=== PATIENT | female | born 1985 | race American Indian/Alaskan Native ===

== ENCOUNTER 2016-12-18 01:56 | Emergency (ER) | payer MEDICAID, OTHER ==
[2016-12-18 02:05] VITALS: TEMP 98.3
--- NOTE | 2016-12-18 02:24 | ED PDOC ---
Arrival/HPI - General Chief Complaint: Respiratory Distress Time Seen by Provider: 12/18/16 02:13 Historian: Patient - History of Present Illness Narrative History of Present Illness (Text): 12/18/16 02:20 Johnson Ballard is a 31 year old female, with a history of asthma, presents to the emergency department via ambulance complaining of difficulty breathing since earlier today. Patient did not use any breathing treatment at home. Patient was given breathing treatments by EMS for appreciable relief. States she had an appointment with ENT yesterday, but was not evaluated due to insurance issues. Denies fever, chills, headache, dizziness, chest pain, nausea , vomiting, diarrhea, urinary symptoms, or any other complaints. Time/Duration: 4-6 hours Symptom Onset: Gradual Symptom Course: Unchanged Severity Level: Mild Activities at Onset: Light Past Medical History - Provider Review Nursing Documentation Reviewed: Yes - Infectious Disease Hx of Infectious Diseases: None - Tetanus Immunization Tetanus Immunization: Unknown - Cardiac Hx Cardiac Disorders: No - Pulmonary Hx Asthma: Yes Hx Bronchitis: No Hx Chronic Obstructive Pulmonary Disease (COPD): No Hx Emphysema: No Hx Pneumonia: No Hx Sleep Apnea: No - Neurological Hx Neurological Disorder: No - HEENT Hx HEENT Disorder: No - Renal Hx Renal Disorder: No - Endocrine/Metabolic Hx Endocrine Disorders: No - Hematological/Oncological Hx Blood Disorders: No - Integumentary Hx Dermatological Disorder: No - Musculoskeletal/Rheumatological Hx Musculoskeletal Disorders: No Hx Falls: No - Gastrointestinal Hx Gastrointestinal Disorders: No - Genitourinary/Gynecological Hx Genitourinary Disorders: No Hx Reproductive Disorders: No - Psychiatric Hx Anxiety: No Hx Bipolar Disorder: No Hx Depression: No Hx Schizophrenia: No Hx Substance Use: No - Past Surgical History Past Surgical History: No Previous - Anesthesia Hx Anesthesia: No - Suicidal Assessment Feels Threatened In Home Enviroment: No Family/Social History - Physician Review Nursing Documentation Reviewed: Yes Family/Social History: No Known Family HX Smoking Status: Former Smoker Hx Alcohol Use: No Hx Substance Use: No Substance used: pcp, marijuana, nathen, ecstasy Hx Substance Use Treatment: No Allergies/Home Meds Allergies/Adverse Reactions: Allergies Beef Containing Products Adverse Reaction (Verified 12/18/16 02:11) SHORTNESS OF BREATH beet Adverse Reaction (Verified 12/18/16 02:11) RASH chocolate flavor Adverse Reaction (Verified 12/18/16 02:11) RASH ORANGE Adverse Reaction (Verified 12/18/16 02:11) SHORTNESS OF BREATH PORK Adverse Reaction (Verified 12/18/16 02:11) SWELLING scallops Adverse Reaction (Verified 12/18/16 02:11) SHORTNESS OF BREATH tomato Adverse Reaction (Verified 12/18/16 02:11) RASH Review of Systems - Physician Review All systems were reviewed & negative as marked: Yes - Review of Systems Constitutional: Normal. absent: Fatigue, Fevers ENT: Other Respiratory: SOB. absent: Cough, Sputum Cardiovascular: absent: Chest Pain Gastrointestinal: Normal. absent: Abdominal Pain, Nausea, Vomiting, Appetite Changes Neurological: Normal. absent: Headache, Dizziness Psychiatric: Normal Physical Exam Vital Signs Reviewed: Yes Vital Signs Temp Pulse Resp BP Pulse Ox 12/18/16 05:05 97 H 18 118/61 95 12/18/16 03:40 88 20 122/65 100 12/18/16 02:40 87 20 117/72 100 12/18/16 02:38 20 93 L 12/18/16 02:04 98.3 F 73 20 118/57 L 100 Temperature: Afebrile Blood Pressure: Normal Pulse: Regular Respiratory Rate: Normal Appearance: Positive for: Well-Appearing, Non-Toxic, Comfortable Pain Distress: None Mental Status: Positive for: Alert and Oriented X 3 - Systems Exam Head: Present: Atraumatic, Normocephalic Pupils: Present: PERRL Extroacular Muscles: Present: EOMI Conjunctiva: Present: Normal Mouth: Present: Moist Mucous Membranes Pharnyx: Present: Normal. No: ERYTHEMA, EXUDATE, TONSILS ENLARGED Respiratory/Chest: Present: Clear to Auscultation, Good Air Exchange. No: Respiratory Distress, Accessory Muscle Use Cardiovascular: Present: Regular Rate and Rhythm, Normal S1, S2. No: Murmurs Abdomen: Present: Normal Bowel Sounds. No: Tenderness, Distention, Peritoneal Signs Upper Extremity: Present: Normal Inspection. No: Cyanosis, Edema Lower Extremity: Present: Normal Inspection. No: Edema Neurological: Present: GCS=15, CN II-XII Intact, Speech Normal, Motor Func Grossly Intact, Normal Sensory Function Skin: Present: Warm, Dry, Normal Color. No: Rashes Psychiatric: Present: Alert, Oriented x 3, Normal Insight, Normal Concentration Medical Decision Making ED Course and Treatment: 12/18/16 02:28 Impression: A 31 year old female who presents to the emergency department complaining of difficulty breathing for past few hours. Plan: -- Duoneb -- Phenergan Codeine -- Reassess and disposition Progress Notes: 12/18/16 04:45 States breathing improved markedly post treatment. Patient is stable for discharge. advised to f.u with PMD within few days and present to emergency department for new or worsening concerns. Re-evaluation Time: 04:45 Reassessment Condition: Re-examined, Improved - Medication Orders Current Medication Orders: Discontinued Medications Albuterol/Ipratropium (Duoneb 3 Mg/0.5 Mg (3 Ml) Ud) 3 ml IH Q15M KELSY Stop: 12/18/16 03:16 Last Admin: 12/18/16 03:28 Dose: 3 ml Promethazine HCl/Codeine (Phenergan/Codeine Oral Syrup) 5 ml PO ONCE STA Stop: 12/18/16 03:52 Last Admin: 12/18/16 04:07 Dose: 5 ml - Scribe Statement The provider has reviewed the documentation as recorded by the Lydia Gar Provider Attestation: All medical record entries made by the Lydia were at my direction and personally dictated by me. I have reviewed the chart and agree that the record accurately reflects my personal performance of the history, physical exam, medical decision making, and the department course for this patient. I have also personally directed, reviewed, and agree with the discharge instructions and disposition. Disposition/Present on Arrival - Present on Arrival Any Indicators Present on Arrival: No History of DVT/PE: No History of Uncontrolled Diabetes: No Urinary Catheter: No History of Decub. Ulcer: No History Surgical Site Infection Following: None - Disposition Have Diagnosis and Disposition been Completed?: Yes Diagnosis: Asthma Disposition: HOME/ ROUTINE Disposition Time: 04:46 Condition: GOOD Discharge Instructions (ExitCare): Asthma (DC) Prescriptions: Albuterol 0.083% [Albuterol Sulfate 3 Ml] 3 ml IH PRN PRN #24 PRN Reason: Shortness Of Breath predniSONE [predniSONE Tab] 20 mg PO TID #15 tab Albuterol HFA [Ventolin HFA] 1 puff IH QID #1 puff
[2016-12-18 02:38] VITALS: BMI 28.2
[2016-12-18] MEDS: Albuterol-Ipratrop 3 mg / 0.5 (3 ml) UD IH SCH ×3 (02:54→03:28)
[2016-12-18] MEDS ORDERED: Promethazine/Cod 6.25mg-10mg/5ml Syr UD PO STA (03:51)
[2016-12-18 05:06] VITALS: BP 118/61; PULSE 97; RESP 18; O2SAT 95
== END 2016-12-18 05:06 | disposition home or self-care (01) ==
LOC: ED 01:56
DX: J45.909 Unspecified asthma, uncomplicated (principal); Z87.891 Personal history of nicotine dependence

== ENCOUNTER 2016-12-20 04:49 | Emergency (ER) | payer MEDICAID ==
[2016-12-20 04:49] VITALS: BMI 28.2
--- NOTE | 2016-12-20 05:06 | ED PDOC ---
Arrival/HPI - General Chief Complaint: Shortness Of Breath Time Seen by Provider: 12/20/16 04:51 Historian: Patient - History of Present Illness Narrative History of Present Illness (Text): 12/20/16 05:05 Romy Ballard is a 31 year old female, whose past medical history includes asthma , who presents to the Emergency department brought in by EMS for shortness of breath and sore throat tonight. Patient states symptoms are consistent with previous episodes of asthma. Patient reports she feels better after she received nebulizer treatments in the field. Patient denies any fever, chills, chest pain,nausea, vomiting, diarrhea, headache, dizziness, or any other complaints. Time/Duration: Other (tonight) Symptom Onset: Gradual Symptom Course: Unchanged Activities at Onset: Rest, Light Context: Home Past Medical History - Provider Review Nursing Documentation Reviewed: Yes - Infectious Disease Hx of Infectious Diseases: None - Tetanus Immunization Tetanus Immunization: Unknown - Cardiac Hx Cardiac Disorders: No - Pulmonary Hx Asthma: Yes Hx Bronchitis: No Hx Chronic Obstructive Pulmonary Disease (COPD): No Hx Emphysema: No Hx Pneumonia: No Hx Sleep Apnea: No - Neurological Hx Neurological Disorder: No - HEENT Hx HEENT Disorder: No - Renal Hx Renal Disorder: No - Endocrine/Metabolic Hx Endocrine Disorders: No - Hematological/Oncological Hx Blood Disorders: No - Integumentary Hx Dermatological Disorder: No - Musculoskeletal/Rheumatological Hx Musculoskeletal Disorders: No Hx Falls: No - Gastrointestinal Hx Gastrointestinal Disorders: No - Genitourinary/Gynecological Hx Genitourinary Disorders: No Hx Reproductive Disorders: No - Psychiatric Hx Anxiety: No Hx Bipolar Disorder: No Hx Depression: No Hx Schizophrenia: No Hx Substance Use: No - Past Surgical History Past Surgical History: No Previous - Anesthesia Hx Anesthesia: No - Suicidal Assessment Feels Threatened In Home Enviroment: No Family/Social History - Physician Review Nursing Documentation Reviewed: Yes Family/Social History: No Known Family HX Smoking Status: Former Smoker Hx Alcohol Use: No Hx Substance Use: No Substance used: pcp, marijuana, nathen, ecstasy Hx Substance Use Treatment: No Allergies/Home Meds Allergies/Adverse Reactions: Allergies Beef Containing Products Adverse Reaction (Verified 12/18/16 02:11) SHORTNESS OF BREATH beet Adverse Reaction (Verified 12/20/16 04:55) RASH chocolate flavor Adverse Reaction (Verified 12/20/16 04:55) RASH ORANGE Adverse Reaction (Verified 12/20/16 04:55) SHORTNESS OF BREATH PORK Adverse Reaction (Verified 12/20/16 04:55) SWELLING scallops Adverse Reaction (Verified 12/20/16 04:55) SHORTNESS OF BREATH tomato Adverse Reaction (Verified 12/20/16 04:55) RASH Review of Systems - Physician Review All systems were reviewed & negative as marked: Yes - Review of Systems Constitutional: Normal. absent: Fevers Eyes: Normal ENT: Sore Throat Respiratory: SOB Cardiovascular: Normal. absent: Chest Pain Gastrointestinal: Normal. absent: Abdominal Pain, Diarrhea, Nausea Genitourinary Female: Normal. absent: Dysuria, Frequency, Hematuria, Urine Output Changes Musculoskeletal: Normal. absent: Back Pain, Neck Pain Skin: Normal. absent: Rash Neurological: Normal. absent: Headache, Dizziness Endocrine: Normal Hemo/Lymphatic: Normal Psychiatric: Normal Physical Exam Vital Signs Reviewed: Yes Vital Signs Pulse Resp BP Pulse Ox 12/20/16 06:26 89 18 131/64 96 12/20/16 05:05 18 94 L 12/20/16 04:57 100 H 20 134/64 96 Temperature: Afebrile Blood Pressure: Normal Pulse: Regular Respiratory Rate: Normal Appearance: Positive for: Well-Appearing, Non-Toxic, Comfortable Pain Distress: None Mental Status: Positive for: Alert and Oriented X 3 - Systems Exam Head: Present: Atraumatic, Normocephalic Pupils: Present: PERRL Extroacular Muscles: Present: EOMI Conjunctiva: Present: Normal Ears: Present: Normal, NORMAL TM, Normal Canal Mouth: Present: Moist Mucous Membranes Pharnyx: Present: ERYTHEMA. No: EXUDATE, TONSILS ENLARGED, Peritonsilar Swelling, Uvular Deviation, Muffled/Hoarse Voice, Strider, Soft Palate/Uvular Edema Nose (External): Present: Atraumatic Nose (Internal): Present: Normal Inspection Neck: Present: Normal Range of Motion Respiratory/Chest: Present: Wheezes. No: Respiratory Distress, Accessory Muscle Use Cardiovascular: Present: Regular Rate and Rhythm, Normal S1, S2. No: Murmurs Abdomen: Present: Normal Bowel Sounds. No: Tenderness, Distention, Peritoneal Signs Upper Extremity: Present: Normal Inspection. No: Cyanosis, Edema Lower Extremity: Present: Normal Inspection. No: Edema Neurological: Present: GCS=15, CN II-XII Intact, Speech Normal Skin: Present: Warm, Dry, Normal Color. No: Rashes Psychiatric: Present: Alert, Oriented x 3, Normal Insight, Normal Concentration Medical Decision Making ED Course and Treatment: 12/20/16 05:05 Impression: 31 year old female complaining of shortness of breath and sore throat. Differential Diagnosis include but are not limited to: asthma vs. pharyngitis Plan: -- Duoneb -- Solu-medrol -- Reassess and disposition Prior Visits: Notes and results from previous visits were reviewed. On 12/18/2016, pt was seen in the Emergency department for shortness of breath. Pt was d/c home with Albuterol, Ventolin, and Prednisone. Progress Notes: 12/20/16 06:05 On re-evaluation, the patient feels better and is in no acute distress. Wheezing resolved. Patient is stable for discharge. Patient was instructed to follow up with physician/clinic in 1-2 days or return if symptoms worsen or new concerning symptoms arise. - EKG Interpretation EKG Interpretation (Text): 12/20/16 06:58 EKG- NSR@ 77,no acute changes Interpreted by ED Physician: Yes Type: 12 lead EKG - Medication Orders Current Medication Orders: Discontinued Medications Albuterol/Ipratropium (Duoneb 3 Mg/0.5 Mg (3 Ml) Ud) 3 ml IH ONCE STA Stop: 12/20/16 05:09 Last Admin: 12/20/16 05:19 Dose: 3 ml Amoxicillin (Amoxil 500 Mg Cap) 500 mg PO STAT STA PRN Reason: Protocol Stop: 12/20/16 06:01 Last Admin: 12/20/16 06:10 Dose: 500 mg Methylprednisolone (Solu-Medrol) 125 mg IVP ONCE ONE Stop: 12/20/16 05:09 Last Admin: 12/20/16 05:19 Dose: 125 mg - Gonzaloibe Statement The provider has reviewed the documentation as recorded by the Lydia Cabrera All medical record entries made by the Lydia were at my direction and personally dictated by me. I have reviewed the chart and agree that the record accurately reflects my personal performance of the history, physical exam, medical decision making, and the department course for this patient. I have also personally directed, reviewed, and agree with the discharge instructions and disposition. Disposition/Present on Arrival - Present on Arrival Any Indicators Present on Arrival: No History of DVT/PE: No History of Uncontrolled Diabetes: No Urinary Catheter: No History of Decub. Ulcer: No History Surgical Site Infection Following: None - Disposition Have Diagnosis and Disposition been Completed?: Yes Diagnosis: Asthma exacerbation, Pharyngitis Disposition: HOME/ ROUTINE Disposition Time: 06:01 Isolation: Special Contact Patient Plan: Discharge Condition: GOOD Discharge Instructions (ExitCare): Asthma (ED), Pharyngitis (ED) Additional Instructions: Take meds as prescribed/follow up with your doctor this week/any recurrent worsening symptoms return to the emergency room Prescriptions: Albuterol 0.083% [Albuterol 0.083% Inhal Amber (2.5 mg/3 ml) UD] 3 ml IH Q4 PRN # 1 pkg PRN Reason: Wheezing Amoxicillin [Amoxil 500 mg Cap] 500 mg PO TID #21 cap predniSONE [Prednisone] 40 mg PO DAILY #10 tab Albuterol Sulfate [Proair Hfa] 2 puff IH Q4 PRN #1 inh PRN Reason: Wheezing Forms: WORK NOTE
[2016-12-20 05:07] VITALS: RESP 18
[2016-12-20] MEDS ORDERED: Albuterol-Ipratrop 3 mg / 0.5 (3 ml) UD IH STA (05:08)
[2016-12-20 06:27] VITALS: BP 131/64; PULSE 89; O2SAT 96
--- NOTE | 2016-12-20 12:12 | CARD ---
APPROVED REPORT EKG Measurement Heart [id number] <Conclusion> Normal sinus rhythm Normal ECG
== END 2016-12-20 07:05 | disposition home or self-care (01) ==
LOC: ED 04:49
DX: J45.901 Unspecified asthma with (acute) exacerbation (principal); J02.9 Acute pharyngitis, unspecified; Z87.891 Personal history of nicotine dependence
CPT/HCPCS: 93005; 96374; 99285; J2930

== ENCOUNTER 2017-04-04 05:06 | Emergency (ER) | payer MEDICAID, OTHER ==
[2017-04-04 05:08] VITALS: BMI 25.2
[2017-04-04 05:14] VITALS: RESP 18
--- NOTE | 2017-04-04 05:21 | ED PDOC ---
Arrival/HPI - General Chief Complaint: Shortness Of Breath Time Seen by Provider: 04/04/17 05:14 Historian: Patient - History of Present Illness Narrative History of Present Illness (Text): 04/04/17 05:18 Romy Ballard is a 31 year old female, whose past medical history includes asthma, who presents to the Emergency department brought in by EMS for shortness of breath tonight. Patient states symptoms are consistent with previous episodes of asthma. Patient given Duoneb and Solu-medrol 125 mg by EMS. Patient reports she feels slightly better after she received nebulizer treatments in the field. Patient denies any fever, chills, chest pain,nausea, vomiting, diarrhea, headache, dizziness, or any other complaints. Symptom Onset: Gradual Symptom Course: Unchanged Activities at Onset: Rest, Light Context: Home Past Medical History - Provider Review Nursing Documentation Reviewed: Yes - Infectious Disease Hx of Infectious Diseases: None - Tetanus Immunization Tetanus Immunization: Unknown - Cardiac Hx Cardiac Disorders: No - Pulmonary Hx Asthma: Yes Hx Bronchitis: No Hx Chronic Obstructive Pulmonary Disease (COPD): No Hx Emphysema: No Hx Pneumonia: No Hx Sleep Apnea: No - Neurological Hx Neurological Disorder: No - HEENT Hx HEENT Disorder: No - Renal Hx Renal Disorder: No - Endocrine/Metabolic Hx Endocrine Disorders: No - Hematological/Oncological Hx Blood Disorders: No - Integumentary Hx Dermatological Disorder: No - Musculoskeletal/Rheumatological Hx Musculoskeletal Disorders: No Hx Falls: No - Gastrointestinal Hx Gastrointestinal Disorders: No - Genitourinary/Gynecological Hx Genitourinary Disorders: No Hx Reproductive Disorders: No - Psychiatric Hx Anxiety: No Hx Bipolar Disorder: No Hx Depression: No Hx Schizophrenia: No Hx Substance Use: No (2 days ago) - Past Surgical History Past Surgical History: No Previous - Anesthesia Hx Anesthesia: No - Suicidal Assessment Feels Threatened In Home Enviroment: No Family/Social History - Physician Review Nursing Documentation Reviewed: Yes Family/Social History: Unknown Family HX Smoking Status: Light Smoker < 10 Cigarettes Daily Hx Alcohol Use: No Hx Substance Use: No (2 days ago) Substance used: pcp, marijuana, nathen, ecstasy Hx Substance Use Treatment: No Allergies/Home Meds Allergies/Adverse Reactions: Allergies Beef Containing Products Allergy (Verified 04/07/17 03:11) SHORTNESS OF BREATH beet Adverse Reaction (Verified 04/07/17 03:11) RASH chocolate flavor Adverse Reaction (Verified 04/07/17 03:11) RASH ORANGE Adverse Reaction (Verified 04/07/17 03:11) SHORTNESS OF BREATH PORK Adverse Reaction (Verified 04/07/17 03:11) SWELLING scallops Adverse Reaction (Verified 04/07/17 03:11) SHORTNESS OF BREATH tomato Adverse Reaction (Verified 04/07/17 03:11) RASH Review of Systems - Physician Review All systems were reviewed & negative as marked: Yes - Review of Systems Constitutional: Normal. absent: Fevers Eyes: Normal ENT: Normal Respiratory: SOB Cardiovascular: Normal. absent: Chest Pain Gastrointestinal: Normal. absent: Abdominal Pain, Diarrhea, Nausea, Vomiting Genitourinary Female: Normal. absent: Dysuria, Frequency, Hematuria, Urine Output Changes Musculoskeletal: Normal. absent: Back Pain, Neck Pain Skin: Normal. absent: Rash Neurological: Normal. absent: Headache, Dizziness Endocrine: Normal Hemo/Lymphatic: Normal Psychiatric: Normal Physical Exam Vital Signs Reviewed: Yes Vital Signs Pulse Resp BP Pulse Ox 04/04/17 06:54 89 18 125/69 94 L 04/04/17 05:09 82 18 129/72 100 Temperature: Afebrile Blood Pressure: Normal Pulse: Regular Respiratory Rate: Normal Appearance: Positive for: Well-Appearing, Non-Toxic, Comfortable Pain Distress: None Mental Status: Positive for: Alert and Oriented X 3 - Systems Exam Head: Present: Atraumatic, Normocephalic Pupils: Present: PERRL Extroacular Muscles: Present: EOMI Conjunctiva: Present: Normal Mouth: Present: Moist Mucous Membranes Neck: Present: Normal Range of Motion Respiratory/Chest: Present: Wheezes. No: Respiratory Distress, Accessory Muscle Use Cardiovascular: Present: Regular Rate and Rhythm, Normal S1, S2. No: Murmurs Abdomen: Present: Normal Bowel Sounds. No: Tenderness, Distention, Peritoneal Signs Back: Present: Normal Inspection Upper Extremity: Present: Normal Inspection. No: Cyanosis, Edema Lower Extremity: Present: Normal Inspection. No: Edema Neurological: Present: GCS=15, CN II-XII Intact, Speech Normal Skin: Present: Warm, Dry, Normal Color. No: Rashes Psychiatric: Present: Alert, Oriented x 3, Normal Insight, Normal Concentration Medical Decision Making ED Course and Treatment: 04/04/17 05:18 Impression: 31 year old female complaining of shortness of breath tonight. Differential Diagnosis included but are not limited to: asthma Plan: -- EKG -- Labs -- Duoneb -- Reassess and disposition Prior Visits: Notes and results from previous visits were reviewed. On 12/20/2016, pt was seen in the Emergency department for shortness of breath and sore throat. Pt was d/c home. Progress Notes: 04/04/17 05:3 Rebiewed radiology, EKG shows NSR at [address]-segment elevations or depressions, no T-wave inversions, normal intervals. - Lab Interpretations Lab Results: 04/04/17 05:50 04/04/17 06:15 Lab Results 04/04/17 06:15: Sodium 141, Potassium 4.6, Chloride 106, Carbon Dioxide 26, Anion Gap 14, BUN 14, Creatinine 0.6, Est GFR ( Amer) > 60, Est GFR (Non- Af Amer) > 60, Random Glucose 100, Calcium 9.2, Total Bilirubin 0.6, AST 48 H, ALT 32, Alkaline Phosphatase 54, Total Protein 7.7, Albumin 4.5, Globulin 3.2, Albumin/Globulin Ratio 1.4 04/04/17 05:50: WBC 7.1, RBC 5.03, Hgb 11.3 L, Hct 35.2 L, MCV 70.0 L, MCH 22.5 L, MCHC 32.1, RDW 18.2 H, Plt Count 323, Gran % 54.9, Lymph % (Auto) 30.9, [place] % (Auto) 8.4 H, Eos % (Auto) 5.5 H, Baso % (Auto) 0.3, Gran # 3.88, Lymph # 2.2 , [place] # 0.6, Eos # 0.4, Baso # 0.02 - EKG Interpretation Interpreted by ED Physician: Yes Type: 12 lead EKG - Medication Orders Current Medication Orders: Discontinued Medications Albuterol/Ipratropium (Duoneb 3 Mg/0.5 Mg (3 Ml) Ud) 3 ml IH Q15M KELSY Stop: 04/04/17 06:01 Last Admin: 04/04/17 06:33 Dose: 3 ml - Scribe Statement The provider has reviewed the documentation as recorded by the Lydia Cabrera Provider Scribe Attestation: All medical record entries made by the Scribe were at my direction and personally dictated by me. I have reviewed the chart and agree that the record accurately reflects my personal performance of the history, physical exam, medical decision making, and the department course for this patient. I have also personally directed, reviewed, and agree with the discharge instructions and disposition. Disposition/Present on Arrival - Present on Arrival Any Indicators Present on Arrival: No History of DVT/PE: No History of Uncontrolled Diabetes: No Urinary Catheter: No History of Decub. Ulcer: No History Surgical Site Infection Following: None - Disposition Have Diagnosis and Disposition been Completed?: Yes Diagnosis: Asthma Disposition: HOME/ ROUTINE Disposition Time: 07:00 Condition: GOOD Discharge Instructions (ExitCare): Asthma (ED) Prescriptions: predniSONE [predniSONE Tab] 20 mg PO TID #15 tab Albuterol HFA [Ventolin HFA] 1 puff IH QID #1 puff Referrals: Ramonita Gardiner MD [Primary Care Provider] - Follow up with primary Forms: [employer] (Bulgarian)
[2017-04-04] MEDS: Albuterol-Ipratrop 3 mg / 0.5 (3 ml) UD IH SCH ×3 (05:41→06:33)
[2017-04-04 06:06] LABS: BASO # 0.02 K/mm3 (0.0-2.0); BASO % 0.3 % (0.0-3.0); EOS # 0.4 (0.0-0.7); EOS % 5.5 % (1.5-5.0); GRAN # 3.88 (1.4-6.5); GRAN % 54.9 % (50.0-68.0); HEMATOCRIT 35.2 % (36.0-48.0); LYMPH # 2.2 (1.2-3.4); LYMPH % 30.9 % (22.0-35.0); MEAN CORPUSCULAR HEMOGLOBIN 22.5 pg (25.0-35.0); MEAN CORPUSCULAR HGB CONC 32.1 g/dl (31.0-37.0); MONO # 0.6 (0.1-0.6); MONO % 8.4 % (1.0-6.0); PLATELET COUNT 323 10^3/uL (120.0-450.0); RED CELL DISTRIBUTION WIDTH 18.2 % (11.5-14.5); WHITE BLOOD COUNT 7.1 10^3/ul (4.5-11.0)
[2017-04-04 06:37] LABS: ALB/GLOB RATIO 1.4 (1.1-1.8); ALKALINE PHOSPHATASE 54 U/L (38-133); ALT/SGPT 32 U/L (7-56); AST/SGOT 48 U/L (15-39); BILIRUBIN,TOTAL 0.6 mg/dL (0.2-1.3); BLOOD UREA NITROGEN 14 mg/dL (7-21); CALCIUM 9.2 mg/dL (8.4-10.5); CARBON DIOXIDE 26 mmol/L (21-33); CHLORIDE 106 mmol/L (98-107); GFR AFRICAN-AMERICAN > 60; GLUCOSE,RANDOM 100 mg/dL (70-110); POTASSIUM 4.6 mmol/L (3.6-5.0); SODIUM 141 mmol/L (132-148); TOTAL PROTEIN 7.7 g/dL (5.8-8.3)
[2017-04-04 06:57] LABS: ADD MANUAL DIFF? NO
[2017-04-04 06:59] VITALS: BP 125/69; PULSE 89
[2017-04-04 07:12] VITALS: O2SAT 94
--- NOTE | 2017-04-04 11:47 | CARD ---
APPROVED REPORT EKG Measurement Heart [id number] <Conclusion> Normal sinus rhythm Normal ECG
== END 2017-04-04 07:12 | disposition home or self-care (01) ==
LOC: ED 05:06
DX: J45.909 Unspecified asthma, uncomplicated (principal)

== ENCOUNTER 2017-04-07 03:00 | Emergency (ER) | payer OTHER ==
[2017-04-07 03:11] VITALS: TEMP 98.2; BMI 26.8
[2017-04-07 03:16] VITALS: RESP 18
[2017-04-07] MEDS ORDERED: Albuterol-Ipratrop 3 mg / 0.5 (3 ml) UD IH STA (03:25)
--- NOTE | 2017-04-07 03:32 | ED PDOC ---
Arrival/HPI - General Historian: Patient - History of Present Illness Time/Duration: < week Symptom Onset: Gradual Symptom Course: Unchanged Quality: Unable to Describe Severity Level: 4 Activities at Onset: Emotional Upset Context: Exertion <Taurus Blanchard - Last Filed: 04/07/17 06:28> <Tera Shelby - Last Filed: 04/10/17 10:06> - General Chief Complaint: Shortness Of Breath Time Seen by Provider: 04/07/17 03:13 - History of Present Illness Narrative History of Present Illness (Text): 04/07/17 03:29 This is a 31 yr. old female with a pertinent past medical history of asthma who comes in [facility] complaining of shortness of breath for two days. She reports exacerbation of breathing when arguing with her boyfriend. She reports an increased use in her rescue inhaler to up to 8 times a day. She reports nausea in conjunction with the shortness of breath. She denies chest pain, vomiting, lightheadedness, dizziness, palpitations, or any other complaints. (Taurus Blanchard) Past Medical History - Provider Review Nursing Documentation Reviewed: Yes - Infectious Disease Hx of Infectious Diseases: None - Tetanus Immunization Tetanus Immunization: Unknown - Cardiac Hx Cardiac Disorders: No - Pulmonary Hx Asthma: Yes Hx Bronchitis: No Hx Chronic Obstructive Pulmonary Disease (COPD): No Hx Emphysema: No Hx Pneumonia: No Hx Sleep Apnea: No - Neurological Hx Neurological Disorder: No - HEENT Hx HEENT Disorder: No - Renal Hx Renal Disorder: No - Endocrine/Metabolic Hx Endocrine Disorders: No - Hematological/Oncological Hx Blood Disorders: No - Integumentary Hx Dermatological Disorder: No - Musculoskeletal/Rheumatological Hx Musculoskeletal Disorders: No Hx Falls: No - Gastrointestinal Hx Gastrointestinal Disorders: No - Genitourinary/Gynecological Hx Genitourinary Disorders: No Hx Reproductive Disorders: No - Psychiatric Hx Anxiety: No Hx Bipolar Disorder: No Hx Depression: No Hx Schizophrenia: No Hx Substance Use: No (2 days ago) - Past Surgical History Past Surgical History: No Previous - Anesthesia Hx Anesthesia: No - Suicidal Assessment Feels Threatened In Home Enviroment: No <Taurus Blanchard - Last Filed: 04/07/17 06:28> Family/Social History - Physician Review Nursing Documentation Reviewed: Yes Family/Social History: No Known Family HX Smoking Status: Light Smoker < 10 Cigarettes Daily Hx Alcohol Use: No Hx Substance Use: No (2 days ago) Substance used: pcp, marijuana, nathen, ecstasy Hx Substance Use Treatment: No <Taurus Blanchard - Last Filed: 04/07/17 06:28> Allergies/Home Meds <Taurus Blanchard - Last Filed: 04/07/17 06:28> <Tera Shelby - Last Filed: 04/10/17 10:06> Allergies/Adverse Reactions: Allergies Beef Containing Products Allergy (Verified 04/07/17 03:11) SHORTNESS OF BREATH beet Adverse Reaction (Verified 04/07/17 03:11) RASH chocolate flavor Adverse Reaction (Verified 04/07/17 03:11) RASH ORANGE Adverse Reaction (Verified 04/07/17 03:11) SHORTNESS OF BREATH PORK Adverse Reaction (Verified 04/07/17 03:11) SWELLING scallops Adverse Reaction (Verified 04/07/17 03:11) SHORTNESS OF BREATH tomato Adverse Reaction (Verified 04/07/17 03:11) RASH Review of Systems - Physician Review All systems were reviewed & negative as marked: Yes - Review of Systems Constitutional: Normal. absent: Fevers, Night Sweats Eyes: Normal. absent: Vision Changes, Eye Pain ENT: Normal. absent: Sore Throat, Rhinorrhea, Sinus Congestion Respiratory: SOB, Wheezing. absent: Cough, Sputum Cardiovascular: Normal. absent: Chest Pain, Palpitations, Syncope Gastrointestinal: Nausea. absent: Abdominal Pain, Constipation, Diarrhea, Vomiting Genitourinary Female: Normal. absent: Frequency, Hematuria, Vaginal Bleeding Musculoskeletal: Normal. absent: Back Pain Skin: Normal. absent: Rash, Skin Lesions, Laceration Neurological: Normal. absent: Headache, Dizziness, Speech Changes Hemo/Lymphatic: Normal. absent: Easy Bruising Psychiatric: Normal <Taurus Blanchard - Last Filed: 04/07/17 06:28> Physical Exam Vital Signs Reviewed: Yes Temperature: Afebrile Blood Pressure: Hypotensive Pulse: Regular Respiratory Rate: Normal Appearance: Positive for: Well-Appearing, Non-Toxic, Comfortable Pain Distress: Mild Mental Status: Positive for: Alert and Oriented X 3 - Systems Exam Head: Present: Atraumatic, Normocephalic Pupils: Present: PERRL. No: Sluggish Extroacular Muscles: Present: EOMI. No: Gaze Palsy Conjunctiva: Present: Normal. No: Injected Mouth: Present: Moist Mucous Membranes, Normal Tounge. No: Drooling Neck: Present: Normal Range of Motion. No: JVD, Lymphadenopathy Respiratory/Chest: Present: Wheezes (Expiratory wheezes noted through all anterior and posterior lung gaona.). No: Clear to Auscultation, Respiratory Distress, Accessory Muscle Use Cardiovascular: Present: Regular Rate and Rhythm, Normal S1, S2. No: Tachycardic, Bradycardic Abdomen: Present: Normal Bowel Sounds. No: Tenderness, Distention, Rebound, Guarding Back: No: Normal Inspection, CVA Tenderness Upper Extremity: Present: Normal Inspection. No: Cyanosis, Edema Lower Extremity: Present: Normal Inspection. No: Edema Neurological: Present: CN II-XII Intact, Speech Normal Skin: Present: Dry, Normal Color. No: Warm, Rashes Psychiatric: Present: Alert, Oriented x 3, Normal Insight <Taurus Blanchard - Last Filed: 04/07/17 06:28> Medical Decision Making <Taurus Blanchard - Last Filed: 04/07/17 06:28> <Tera Shelby - Last Filed: 04/10/17 10:06> ED Course and Treatment: 04/07/17 03:38 This is a 31 yr. old female with a past medical history of asthma who comes to the ED complaining of shortness of breath for two days. I ordered: cbc w/diff, cmp, and a chest xray. The patient was given 3 ml Duoneb and 60 Solumdrol IV. The patient will be re-evaluated one lab results return and medications are given. 04/07/17 03:40 04/07/17 06:28 Patient reports feeling better after breathing treatment and iv steroids. Patient will be discharged. Discussed with patient to cut back on her smoking to help prevent future asthma exacerbations. (Taurus Blanchard) Impression: Pt seen and evaluated with medical device assembler. Pt, whose past medical history includes asthma, presented for shortness of breath x 2 days. Symptoms are consistent with previous asthma symptoms. States she used her inhaler multiple times yesterday with minimal relief. Aware and agree with HPI, clinical findings , plan, and management. Plan: -- Labs -- Chest X-ray -- Duoneb -- Solu-medrol -- Reassess and disposition (Tera Shelby) - Lab Interpretations Lab Results: 04/07/17 06:06 04/07/17 06:06 Lab Results 04/07/17 06:06: Sodium 143, Potassium 3.6, Chloride 102, Carbon Dioxide 30, Anion Gap 15, BUN 13, Creatinine 0.7, Est GFR ( Amer) > 60, Est GFR (Non- Af Amer) > 60, Random Glucose 88, Calcium 9.1, Total Bilirubin 0.4, AST 35, ALT 32, Alkaline Phosphatase 54, Total Protein 6.4, Albumin 3.8, Globulin 2.6, Albumin/Globulin Ratio 1.5 04/07/17 06:06: WBC 10.6 D, RBC 4.62, Hgb 10.2 L, Hct 32.6 L, MCV 70.6 L, MCH 22.1 L, MCHC 31.3, RDW 18.0 H, Plt Count 290, MPV 9.8, Gran % 55.1, Lymph % ( Auto) 33.7, [place] % (Auto) 7.3 H, Eos % (Auto) 3.6, Baso % (Auto) 0.3, Gran # 5.86, Lymph # 3.6 H, [place] # 0.8 H, Eos # 0.4, Baso # 0.03 - RAD Interpretation Radiology Orders: 04/07/17 03:27 X-RAY [CHEST TWO VIEWS (PA/LAT)] [RAD] Stat - Medication Orders Current Medication Orders: Discontinued Medications Albuterol/Ipratropium (Duoneb 3 Mg/0.5 Mg (3 Ml) Ud) 3 ml IH STAT STA Stop: 04/07/17 03:26 Last Admin: 04/07/17 05:47 Dose: 3 ml Methylprednisolone (Solu-Medrol) 60 mg IVP STAT STA Stop: 04/07/17 03:27 Last Admin: 04/07/17 05:39 Dose: 60 mg - PA / B[employer]ALE[employer] / Resident Statement LISSY has reviewed & agrees with the documentation as recorded. LISSY has examined the patient and agrees with the treatment plan. <Tera Shelby - Last Filed: 04/10/17 10:06> Disposition/Present on Arrival - Present on Arrival Any Indicators Present on Arrival: No History of DVT/PE: No History of Uncontrolled Diabetes: No Urinary Catheter: No History of Decub. Ulcer: No History Surgical Site Infection Following: None - Disposition Have Diagnosis and Disposition been Completed?: Yes Disposition Time: 06:30 Patient Plan: Discharge <Taurus Blanchard - Last Filed: 04/07/17 06:28> - Present on Arrival Any Indicators Present on Arrival: No - Disposition Have Diagnosis and Disposition been Completed?: Yes <Tera Shelby - Last Filed: 04/10/17 10:06> - Disposition Diagnosis: Asthma Disposition: HOME/ ROUTINE Condition: GOOD Discharge Instructions (ExitCare): Asthma (ED) Additional Instructions: Discussed with patient to follow up with her PMD within one week. Discussed with patient to cut back her smoking to help prevent future asthma exacerbations. Patient should return to [facility] if any new symptoms present or current symptoms worsen. Forms: [employer] (Kazakh)
[2017-04-07 06:13] LABS: BASO # 0.03 K/mm3 (0.0-2.0); BASO % 0.3 % (0.0-3.0); EOS # 0.4 (0.0-0.7); EOS % 3.6 % (1.5-5.0); GRAN # 5.86 (1.4-6.5); GRAN % 55.1 % (50.0-68.0); HEMATOCRIT 32.6 % (36.0-48.0); LYMPH # 3.6 (1.2-3.4); LYMPH % 33.7 % (22.0-35.0); MEAN CELL VOLUME 70.6 fl (80.0-105.0); MEAN CORPUSCULAR HEMOGLOBIN 22.1 pg (25.0-35.0); MEAN CORPUSCULAR HGB CONC 31.3 g/dl (31.0-37.0); MEAN PLATELET VOLUME 9.8 fl (7.0-11.0); MONO # 0.8 (0.1-0.6); MONO % 7.3 % (1.0-6.0); WHITE BLOOD COUNT 10.6 10^3/ul (4.5-11.0)
[2017-04-07 06:24] LABS: ALB/GLOB RATIO 1.5 (1.1-1.8); ALKALINE PHOSPHATASE 54 U/L (38-133); ALT/SGPT 32 U/L (7-56); AST/SGOT 35 U/L (15-39); BILIRUBIN,TOTAL 0.4 mg/dL (0.2-1.3); BLOOD UREA NITROGEN 13 mg/dL (7-21); CALCIUM 9.1 mg/dL (8.4-10.5); CARBON DIOXIDE 30 mmol/L (21-33); CHLORIDE 102 mmol/L (98-107); GFR AFRICAN-AMERICAN > 60; GLUCOSE,RANDOM 88 mg/dL (70-110); POTASSIUM 3.6 mmol/L (3.6-5.0); SODIUM 143 mmol/L (132-148); TOTAL PROTEIN 6.4 g/dL (5.8-8.3)
[2017-04-07 07:20] VITALS: BP 118/62; PULSE 76; O2SAT 100
--- NOTE | 2017-04-07 11:22 | RAD ---
HISTORY: shortness of breath COMPARISON: 12/25/2013 TECHNIQUE: Chest PA and lateral FINDINGS: LUNGS: No active pulmonary disease. PLEURA: No significant pleural effusion identified. No pneumothorax apparent. CARDIOVASCULAR: Normal. OSSEOUS STRUCTURES: No significant abnormalities. VISUALIZED UPPER ABDOMEN: Normal. OTHER FINDINGS: None. IMPRESSION: No active disease.
== END 2017-04-07 06:50 | disposition home or self-care (01) ==
LOC: ED 03:00
DX: J45.909 Unspecified asthma, uncomplicated (principal)
CPT/HCPCS: 71020; 80053; 85025; 96374; 99283; J2930

== ENCOUNTER 2017-04-20 14:15 | Emergency (ER) | payer MEDICAID, OTHER ==
[2017-04-20 14:15] VITALS: BMI 26.8
--- NOTE | 2017-04-20 14:43 | ED PDOC ---
Arrival/HPI - General Chief Complaint: Substance Abuse Time Seen by Provider: 04/20/17 14:32 Historian: Patient - History of Present Illness Time/Duration: Prior to Arrival Symptom Course: Improving Severity Level: Mild Associated Symptoms (Text): 04/20/17 14:42 Patient reports that she is moving out of her boyfriend's house and moving in with a friend. She was pushing a shopping cart and became tired and weak and sat down and almost fainted. A passerby called 911 and the patient was brought to the emergency department. No chest pain palpitations or dyspnea. No fever or chills. No abdominal pain nausea or vomiting. She has a history of asthma, but her breathing currently is not bothering her. No headache dizziness or lightheadedness. Past Medical History - Infectious Disease Hx of Infectious Diseases: None - Tetanus Immunization Tetanus Immunization: Unknown - Cardiac Hx Cardiac Disorders: No - Pulmonary Hx Asthma: Yes Hx Bronchitis: No Hx Chronic Obstructive Pulmonary Disease (COPD): No Hx Emphysema: No Hx Pneumonia: No Hx Sleep Apnea: No - Neurological Hx Neurological Disorder: No - HEENT Hx HEENT Disorder: No - Renal Hx Renal Disorder: No - Endocrine/Metabolic Hx Endocrine Disorders: No - Hematological/Oncological Hx Blood Disorders: No - Integumentary Hx Dermatological Disorder: No - Musculoskeletal/Rheumatological Hx Musculoskeletal Disorders: No Hx Falls: No - Gastrointestinal Hx Gastrointestinal Disorders: No - Genitourinary/Gynecological Hx Genitourinary Disorders: No Hx Reproductive Disorders: No - Psychiatric Hx Anxiety: No Hx Bipolar Disorder: No Hx Depression: No Hx Schizophrenia: No Hx Substance Use: No (2 days ago) - Past Surgical History Past Surgical History: No Previous - Anesthesia Hx Anesthesia: No - Suicidal Assessment Feels Threatened In Home Enviroment: No Family/Social History - Physician Review Nursing Documentation Reviewed: Yes Family/Social History: No Known Family HX Smoking Status: Light Smoker < 10 Cigarettes Daily Hx Alcohol Use: No Hx Substance Use: Yes (2 days ago) Substance used: pcp, marijuana, nathen, ecstasy Hx Substance Use Treatment: No Allergies/Home Meds Allergies/Adverse Reactions: Allergies Beef Containing Products Allergy (Verified 04/20/17 14:28) SHORTNESS OF BREATH beet Adverse Reaction (Verified 04/20/17 14:28) RASH chocolate flavor Adverse Reaction (Verified 04/20/17 14:28) RASH ORANGE Adverse Reaction (Verified 04/20/17 14:28) SHORTNESS OF BREATH PORK Adverse Reaction (Verified 04/20/17 14:28) SWELLING scallops Adverse Reaction (Verified 04/20/17 14:28) SHORTNESS OF BREATH tomato Adverse Reaction (Verified 04/20/17 14:28) RASH Review of Systems - Physician Review All systems were reviewed & negative as marked: Yes - Review of Systems Constitutional: Fatigue. absent: Fevers Respiratory: absent: SOB, Cough, Sputum, Wheezing Cardiovascular: absent: Chest Pain, Palpitations, Syncope Gastrointestinal: absent: Abdominal Pain, Constipation, Diarrhea, Nausea, Vomiting Genitourinary Female: absent: Dysuria, Frequency, Hematuria Neurological: absent: Headache, Dizziness, Focal Weakness Psychiatric: absent: Anxiety, Depression, Suicidal Ideation Physical Exam Vital Signs Temp Pulse Resp BP Pulse Ox 04/20/17 15:51 96.7 F L 04/20/17 15:50 96.7 F L 92 H 21 127/85 98 04/20/17 14:30 98.4 F 99 H 20 114/70 100 Temperature: Afebrile Blood Pressure: Normal Pulse: Regular Respiratory Rate: Normal Appearance: Positive for: Well-Appearing, Non-Toxic, Comfortable Pain Distress: None Mental Status: Positive for: Alert and Oriented X 3 - Systems Exam Head: Present: Atraumatic, Normocephalic Pupils: Present: PERRL Extroacular Muscles: Present: EOMI Conjunctiva: Present: Normal Ears: Present: NORMAL TM, Normal Canal. No: Erythema Mouth: Present: Moist Mucous Membranes Pharnyx: No: ERYTHEMA, EXUDATE, TONSILS ENLARGED Neck: Present: Normal Range of Motion. No: MIDLINE TENDERNESS, Paraspinal Tenderness Respiratory/Chest: Present: Clear to Auscultation, Good Air Exchange, Decreased Breath Sounds. No: Respiratory Distress, Accessory Muscle Use, Wheezes, Rales, Retracting, Rhonchi, Tachypneic Cardiovascular: Present: Regular Rate and Rhythm, Normal S1, S2. No: Murmurs Abdomen: Present: Normal Bowel Sounds. No: Tenderness, Distention, Peritoneal Signs, Rebound, Guarding Upper Extremity: Present: Normal Inspection. No: Cyanosis, Edema Lower Extremity: Present: Normal Inspection. No: Edema Neurological: Present: GCS=15, CN II-XII Intact, Speech Normal, Motor Func Grossly Intact, Normal Cerebellar Funct Skin: Present: Warm, Dry, Normal Color. No: Rashes Psychiatric: Present: Alert, Oriented x 3, Normal Insight, Normal Concentration Medical Decision Making ED Course and Treatment: 04/20/17 15:06 EKG shows normal sinus rhythm rate approximately [address] or T-wave changes - Lab Interpretations Lab Results: 04/20/17 15:00 04/20/17 15:00 Lab Results 04/20/17 15:00: Alcohol, Quantitative < 10 04/20/17 15:00: Salicylates < 1 L, Acetaminophen < 10.0 L 04/20/17 15:00: Urine Opiates Screen Negative, Urine Methadone Screen Negative, Ur Barbiturates Screen Negative, Ur Phencyclidine Scrn Positive H, Ur Amphetamines Screen Negative, U Benzodiazepines Scrn Negative, U Oth Cocaine Metabols Positive H, U Cannabinoids Screen Positive H 04/20/17 15:00: Sodium 141, Potassium 4.0, Chloride 103, Carbon Dioxide 29, Anion Gap 13, BUN 9, Creatinine 0.8, Est GFR ( Amer) > 60, Est GFR (Non- Af Amer) > 60, Random Glucose 87, Calcium 9.6, Phosphorus 3.6, Magnesium 2.1, Total Bilirubin 0.8, AST 34, ALT 39, Alkaline Phosphatase 64, Lactate Dehydrogenase 509, Total Creatine Kinase 119, Troponin I < 0.01, Total Protein 7.7, Albumin 4.5, Globulin 3.2, Albumin/Globulin Ratio 1.4 04/20/17 15:00: Urine Color Yellow, Urine Appearance Clear, Urine pH 6.5, Ur Specific [place] 1.015, Urine Protein Trace H, Urine Glucose (UA) Negative, Urine Ketones Trace H, Urine Blood Negative, Urine Nitrate Negative, Urine Bilirubin Negative, Urine Urobilinogen 0.2, Ur Leukocyte Esterase Trace H, Urine RBC 0 - 2, Urine WBC 1 - 3, Ur Epithelial Cells 10 - 12, Urine Bacteria Few 04/20/17 15:00: WBC 9.3, RBC 4.88, Hgb 10.9 L, Hct 34.4 L, MCV 70.5 L, MCH 22.3 L, MCHC 31.7, RDW 17.1 H, Plt Count 386, MPV 10.1, Gran % 78.2 H, Lymph % (Auto ) 14.5 L, [place] % (Auto) 5.8, Eos % (Auto) 1.2 L, Baso % (Auto) 0.3, Gran # 7.24 H, Lymph # 1.3, [place] # 0.5, Eos # 0.1, Baso # 0.03 Disposition/Present on Arrival - Present on Arrival Any Indicators Present on Arrival: No History of DVT/PE: No History of Uncontrolled Diabetes: No Urinary Catheter: No History of Decub. Ulcer: No History Surgical Site Infection Following: None - Disposition Have Diagnosis and Disposition been Completed?: Yes Diagnosis: Substance abuse Disposition: HOME/ ROUTINE Disposition Time: 16:13 Patient Plan: Discharge Condition: GOOD Discharge Instructions (ExitCare): Polysubstance Abuse (ED) Additional Instructions: Follow up with PMD. Follow up in ER as needed. Referrals: Ramonita Gardiner MD [Primary Care Provider] - Follow up with primary Forms: [employer] (Welsh)
[2017-04-20 15:17] LABS: BASO # 0.03 K/mm3 (0.0-2.0); BASO % 0.3 % (0.0-3.0); EOS # 0.1 (0.0-0.7); EOS % 1.2 % (1.5-5.0); GRAN # 7.24 (1.4-6.5); GRAN % 78.2 % (50.0-68.0); HEMATOCRIT 34.4 % (36.0-48.0); LYMPH # 1.3 (1.2-3.4); LYMPH % 14.5 % (22.0-35.0); MEAN CELL VOLUME 70.5 fl (80.0-105.0); MEAN CORPUSCULAR HEMOGLOBIN 22.3 pg (25.0-35.0); MEAN CORPUSCULAR HGB CONC 31.7 g/dl (31.0-37.0); MEAN PLATELET VOLUME 10.1 fl (7.0-11.0); MONO # 0.5 (0.1-0.6); MONO % 5.8 % (1.0-6.0); RED CELL DISTRIBUTION WIDTH 17.1 % (11.5-14.5); WHITE BLOOD COUNT 9.3 10^3/ul (4.5-11.0)
[2017-04-20 15:41] LABS: PH,URINE 6.5 (4.7-8.0); URINE APPEARANCE CLEAR (CLEAR); URINE BILIRUBIN NEGATIVE (NEGATIVE); URINE BLOOD NEGATIVE (NEGATIVE); URINE COLOR YELLOW (YELLOW); URINE GLUCOSE (UA) NEGATIVE (NEGATIVE); URINE KETONE TRACE mg/dL (NEGATIVE); URINE LEUKOCYTE ESTERASE TRACE Leu/uL (NEGATIVE); URINE PROTEIN TRACE mg/dL (<30 mg/dL); URINE UROBILINOGEN 0.2 E.U./dL (<1 E.U./dL)
[2017-04-20 15:42] LABS: TROPONIN I < 0.01 ng/mL
[2017-04-20 15:57] LABS: ALB/GLOB RATIO 1.4 (1.1-1.8); ALKALINE PHOSPHATASE 64 U/L (38-126); ALT/SGPT 39 U/L (7-56); AST/SGOT 34 U/L (14-36); BILIRUBIN,TOTAL 0.8 mg/dL (0.2-1.3); BLOOD UREA NITROGEN 9 mg/dL (7-21); CALCIUM 9.6 mg/dL (8.4-10.5); CARBON DIOXIDE 29 mmol/L (21-33); CHLORIDE 103 mmol/L (98-107); GFR AFRICAN-AMERICAN > 60; GLUCOSE,RANDOM 87 mg/dL (70-110); MAGNESIUM 2.1 mg/dL (1.7-2.2); PHOSPHOROUS 3.6 mg/dL (2.5-4.5); SODIUM 141 mmol/L (132-148); TOTAL PROTEIN 7.7 g/dL (5.8-8.3)
[2017-04-20 16:03] LABS: URINE BACTERIA FEW (NEG); URINE RBC 0 - 2 /hpf (0-2)
[2017-04-20 16:34] VITALS: BP 124/71; PULSE 75; RESP 20; TEMP 98; O2SAT 99
--- NOTE | 2017-04-22 07:26 | CARD ---
APPROVED REPORT EKG Measurement Heart [id number] <Conclusion> Normal sinus rhythm Normal ECG
== END 2017-04-20 16:34 | disposition home or self-care (01) ==
LOC: ED 14:15
DX: F19.10 Other psychoactive substance abuse, uncomplicated (principal); F17.210 Nicotine dependence, cigarettes, uncomplicated
CPT/HCPCS: 80053; 81001; 82550; 83615; 83735; 84100; 84484; 85025; 87086; 93005; 99285; G0480

== ENCOUNTER 2017-06-23 17:53 | Emergency (ER) | payer MEDICAID, OTHER ==
[2017-06-23 17:54] VITALS: BMI 26.8
--- NOTE | 2017-06-23 18:01 | ED PDOC ---
Arrival/HPI - General Time Seen by Provider: 06/23/17 17:57 Historian: Patient - History of Present Illness Narrative History of Present Illness (Text): 06/23/17 17:58 A 31 year old female, whose past medical history includes asthma, presents to the emergency department with shortness of breath, chest pain, and wheezing today. The patient states that she took her inhaler but she continued to have the chest pain and tightness. The patient denies fevers, chills, headache, dizziness, cough, sore throat, abdominal pain, nausea, vomiting, diarrhea, back pain, neck pain, urinary/bowel changes, trauma/injury, or any other complaints. PMD: Dr. Emmanuel Gardiner Time/Duration: Other (Today) Symptom Onset: Sudden Symptom Course: Unchanged Activities at Onset: Rest, Light Context: Home Past Medical History - Provider Review Nursing Documentation Reviewed: Yes - Infectious Disease Hx of Infectious Diseases: None - Tetanus Immunization Tetanus Immunization: Unknown - Cardiac Hx Cardiac Disorders: No - Pulmonary Hx Asthma: Yes Hx Bronchitis: No Hx Chronic Obstructive Pulmonary Disease (COPD): No Hx Emphysema: No Hx Pneumonia: No Hx Sleep Apnea: No - Neurological Hx Neurological Disorder: No - HEENT Hx HEENT Disorder: No - Renal Hx Renal Disorder: No - Endocrine/Metabolic Hx Endocrine Disorders: No - Hematological/Oncological Hx Blood Disorders: No - Integumentary Hx Dermatological Disorder: No - Musculoskeletal/Rheumatological Hx Musculoskeletal Disorders: No Hx Falls: No - Gastrointestinal Hx Gastrointestinal Disorders: No - Genitourinary/Gynecological Hx Genitourinary Disorders: No Hx Reproductive Disorders: No - Psychiatric Hx Anxiety: No Hx Bipolar Disorder: No Hx Depression: No Hx Schizophrenia: No Hx Substance Use: Yes (2 days ago) - Past Surgical History Past Surgical History: No Previous - Anesthesia Hx Anesthesia: No - Suicidal Assessment Feels Threatened In Home Enviroment: No Family/Social History - Physician Review Nursing Documentation Reviewed: Yes Family/Social History: No Known Family HX Smoking Status: Light Smoker < 10 Cigarettes Daily Hx Alcohol Use: No Hx Substance Use: Yes (2 days ago) Substance used: pcp, marijuana, nathen, ecstasy Hx Substance Use Treatment: No Allergies/Home Meds Allergies/Adverse Reactions: Allergies Beef Containing Products Allergy (Verified 06/23/17 17:59) SHORTNESS OF BREATH beet Adverse Reaction (Verified 06/23/17 17:59) RASH chocolate flavor Adverse Reaction (Verified 06/23/17 17:59) RASH ORANGE Adverse Reaction (Verified 06/23/17 17:59) SHORTNESS OF BREATH PORK Adverse Reaction (Verified 06/23/17 17:59) SWELLING scallops Adverse Reaction (Verified 06/23/17 17:59) SHORTNESS OF BREATH tomato Adverse Reaction (Verified 06/23/17 17:59) RASH Review of Systems - Physician Review All systems were reviewed & negative as marked: Yes - Review of Systems Constitutional: absent: Fevers, Night Sweats ENT: absent: Sore Throat Respiratory: SOB, Wheezing Cardiovascular: Chest Pain (Chest tightness) Gastrointestinal: absent: Abdominal Pain, Stool Changes, Diarrhea, Nausea, Vomiting Genitourinary Female: absent: Urine Output Changes Musculoskeletal: absent: Back Pain, Neck Pain Neurological: absent: Headache, Dizziness Physical Exam Vital Signs Reviewed: Yes Vital Signs Temp Pulse Resp BP Pulse Ox 06/23/17 19:48 86 16 128/76 98 06/23/17 19:20 16 06/23/17 18:20 20 06/23/17 18:08 98.7 F 85 20 127/80 98 Temperature: Afebrile Blood Pressure: Normal Pulse: Regular Respiratory Rate: Normal Appearance: Positive for: Non-Toxic Pain Distress: Mild Mental Status: Positive for: Alert and Oriented X 3 - Systems Exam Head: Present: Atraumatic, Normocephalic Pupils: Present: PERRL Extroacular Muscles: Present: EOMI Conjunctiva: Present: Normal Mouth: Present: Moist Mucous Membranes Neck: Present: Normal Range of Motion Respiratory/Chest: Present: Respiratory Distress (Mild respiratory distress), Wheezes (Bilateral moderate wheezing) Cardiovascular: Present: Regular Rate and Rhythm, Normal S1, S2. No: Murmurs Abdomen: Present: Normal Bowel Sounds. No: Tenderness, Distention, Peritoneal Signs Back: Present: Normal Inspection Upper Extremity: Present: Normal Inspection. No: Cyanosis, Edema Lower Extremity: Present: Normal Inspection. No: Edema Neurological: Present: GCS=15, CN II-XII Intact, Speech Normal Skin: Present: Warm, Dry, Normal Color. No: Rashes Psychiatric: Present: Alert, Oriented x 3, Normal Insight, Normal Concentration Medical Decision Making ED Course and Treatment: 06/23/17 18:01 Impression: A 31 year old female presents to the emergency department with shortness of breath, wheezing, and chest pain today. Plan: -- EKG -- Chest X-ray -- Labs -- Reassess and disposition Prior Visits: Notes and results from previous visits were reviewed. On 04/20/2017 patient came in complaining of weakness and a near syncopal episode. Patient was discharged home and advised to follow up with her PMD. Progress Notes: EKG: Ordered, reviewed, and independently interpreted the EKG. Rate : 73 BPM Rhythm : NSR Interpretation : QRS Normal. ST Normal. T- waves normal. 06/23/17 19:27: On reevaluation, the patient states that she is feeling better. Patient no longer wheezing. - Lab Interpretations Lab Results: 06/23/17 18:35 06/23/17 18:35 Lab Results 06/23/17 18:35: Sodium 140, Potassium 3.4 L, Chloride 105, Carbon Dioxide 27, Anion Gap 11, BUN 10, Creatinine 0.7, Est GFR ( Amer) > 60, Est GFR (Non- Af Amer) > 60, Random Glucose 96, Calcium 9.3, Total Bilirubin 0.5, AST 28, ALT 30, Alkaline Phosphatase 69, Lactate Dehydrogenase 460, Total Creatine Kinase 100, Troponin I < 0.01, Total Protein 7.1, Albumin 4.1, Globulin 3.0, Albumin/ Globulin Ratio 1.4 06/23/17 18:35: WBC 8.7, RBC 4.83, Hgb 11.0 L, Hct 33.9 L, MCV 70.2 L, MCH 22.8 L, MCHC 32.4, RDW 16.9 H, Plt Count 328, MPV 10.1, Gran % 54.4, Lymph % (Auto) 34.1, [place] % (Auto) 5.8, Eos % (Auto) 5.2 H, Baso % (Auto) 0.5, Gran # 4.72, Lymph # 3.0, [place] # 0.5, Eos # 0.5, Baso # 0.04 I have reviewed the lab results: Yes - RAD Interpretation Radiology Orders: 06/23/17 18:01 CHEST PORTABLE [RAD] Stat - EKG Interpretation Interpreted by ED Physician: Yes Type: 12 lead EKG - Medication Orders Current Medication Orders: Discontinued Medications Albuterol Sulfate (Albuterol 0.083% Inhal Amber (2.5 Mg/3 Ml) Ud) 2.5 mg IH Q4 PRN PRN Reason: Wheezing Albuterol/Ipratropium (Duoneb 3 Mg/0.5 Mg (3 Ml) Ud) 3 ml IH Q15M KELSY Stop: 06/23/17 18:46 Last Admin: 06/23/17 19:01 Dose: 3 ml Methylprednisolone (Solu-Medrol) 125 mg IVP ONCE ONE Stop: 06/23/17 18:16 Last Admin: 06/23/17 18:33 Dose: 125 mg IVP Administration Document 06/23/17 18:33 MR (Rec: 06/23/17 18:33 MR [id number]) Charges for Administration # of IVP Administrations 1 Ondansetron HCl (Zofran Inj) 4 mg IVP STAT STA Stop: 06/23/17 19:12 Last Admin: 06/23/17 19:24 Dose: 4 mg IVP Administration Document 06/23/17 19:24 [place] (Rec[facility]23/17 19:[id number] Charges for Administration # of IVP Administrations 1 - Scribe Statement The provider has reviewed the documentation as recorded by the Scribe Shantell Funk Provider Scribe Attestation: All medical record entries made by the Scribe were at my direction and personally dictated by me. I have reviewed the chart and agree that the record accurately reflects my personal performance of the history, physical exam, medical decision making, and the department course for this patient. I have also personally directed, reviewed, and agree with the discharge instructions and disposition. Disposition/Present on Arrival - Present on Arrival Any Indicators Present on Arrival: No History of DVT/PE: No History of Uncontrolled Diabetes: No Urinary Catheter: No History Surgical Site Infection Following: None - Disposition Have Diagnosis and Disposition been Completed?: Yes Diagnosis: Asthma Disposition: HOME/ ROUTINE Disposition Time: 19:48 Condition: IMPROVED Discharge Instructions (ExitCare): Asthma (ED) Prescriptions: predniSONE [predniSONE Tab] 40 mg PO DAILY #10 tab Referrals: [facility] [Provider Group] - Follow up with primary Forms: [employer] (Armenian)
[2017-06-23] MEDS ORDERED: Albuterol 0.083% Inhal Sol (2.5 mg/3 mL) UD IH PRN (18:04)
[2017-06-23] MEDS ORDERED: METHYLPREDNISOLONE IV ONE (18:05)
[2017-06-23] MEDS ORDERED: SODIUM CHLORIDE 0.9% IV ONE (18:05)
[2017-06-23 18:13] VITALS: TEMP 98.7; O2SAT 98
[2017-06-23] MEDS: Albuterol-Ipratrop 3 mg / 0.5 (3 ml) UD IH SCH ×3 (18:31→19:01)
[2017-06-23 18:49] LABS: BASO # 0.04 K/mm3 (0.0-2.0); BASO % 0.5 % (0.0-3.0); EOS # 0.5 (0.0-0.7); EOS % 5.2 % (1.5-5.0); GRAN # 4.72 (1.4-6.5); GRAN % 54.4 % (50.0-68.0); HEMATOCRIT 33.9 % (36.0-48.0); LYMPH % 34.1 % (22.0-35.0); MEAN CELL VOLUME 70.2 fl (80.0-105.0); MEAN CORPUSCULAR HEMOGLOBIN 22.8 pg (25.0-35.0); MEAN CORPUSCULAR HGB CONC 32.4 g/dl (31.0-37.0); MEAN PLATELET VOLUME 10.1 fl (7.0-11.0); MONO # 0.5 (0.1-0.6); MONO % 5.8 % (1.0-6.0); RED CELL DISTRIBUTION WIDTH 16.9 % (11.5-14.5); WHITE BLOOD COUNT 8.7 10^3/ul (4.5-11.0)
[2017-06-23 18:52] LABS: ALB/GLOB RATIO 1.4 (1.1-1.8); ALKALINE PHOSPHATASE 69 U/L (38-126); ALT/SGPT 30 U/L (7-56); AST/SGOT 28 U/L (14-36); BILIRUBIN,TOTAL 0.5 mg/dL (0.2-1.3); BLOOD UREA NITROGEN 10 mg/dL (7-21); CALCIUM 9.3 mg/dL (8.4-10.5); CARBON DIOXIDE 27 mmol/L (21-33); CHLORIDE 105 mmol/L (98-107); GFR AFRICAN-AMERICAN > 60; GLUCOSE,RANDOM 96 mg/dL (70-110); POTASSIUM 3.4 mmol/L (3.6-5.0); SODIUM 140 mmol/L (132-148); TOTAL PROTEIN 7.1 g/dL (5.8-8.3)
[2017-06-23 19:07] LABS: TROPONIN I < 0.01 ng/mL
[2017-06-23 19:49] VITALS: BP 128/76; PULSE 86; RESP 16
--- NOTE | 2017-06-24 08:10 | RAD ---
HISTORY: Chest pain COMPARISON: 04/07/2017 FINDINGS: LUNGS: No active pulmonary disease. PLEURA: No significant pleural effusion identified, no pneumothorax apparent. CARDIOVASCULAR: Normal. OSSEOUS STRUCTURES: No significant abnormalities. VISUALIZED UPPER ABDOMEN: Normal. OTHER FINDINGS: None. IMPRESSION: No active disease. No significant interval change compared to the prior examination(s). Please note: No preliminary interpretation of this examination rendered by emergency department personnel (Physician and/or PA were non-compliant in providing, as requested, preliminary report of their findings/ observations).
--- NOTE | 2017-06-24 22:15 | CARD ---
APPROVED REPORT EKG Measurement Heart [id number] <Conclusion> Normal sinus rhythm Normal ECG
== END 2017-06-23 19:50 | disposition home or self-care (01) ==
LOC: ED 17:53
DX: J45.909 Unspecified asthma, uncomplicated (principal); F17.210 Nicotine dependence, cigarettes, uncomplicated
CPT/HCPCS: 71010; 80053; 82550; 83615; 84484; 85025; 93005; 94640; 96374; 96375; 99284; J2405; J2930

== ENCOUNTER 2017-08-05 15:21 | Emergency (ER) | payer OTHER ==
[2017-08-05 15:21] VITALS: BMI 26.8
[2017-08-05 15:27] VITALS: RESP 18; TEMP 98.3; O2SAT 100
--- NOTE | 2017-08-05 15:49 | ED PDOC ---
Arrival/HPI - General Chief Complaint: Trauma Time Seen by Provider: 08/05/17 15:26 Historian: Patient - History of Present Illness Narrative History of Present Illness (Text): 08/05/17 15:45 32 year old female presents to the Emergency department complaining of a fall that occurred 2 nights ago. Patient was walking down stairs when she missed a step, fell down 2 stairs, and landed on her back/buttocks. Patient complains of left sided lumbar back pain that is worsened with movement and right knee pain that radiates up to the back also worsened with movement. Patient denies any head trauma, loss of consciousness, weakness, numbness, tingling, dysuria, frequency, hematuria, fever, chills, chest pain, shortness of breath, nausea, vomiting, diarrhea, constipation, headache, dizziness, any other complaints. Reports last tetanus <10 years ago Time/Duration: Other (2 days) Symptom Onset: Sudden Symptom Course: Unchanged Context: Home, Slipped (fells down 2 stairs) Past Medical History - Provider Review Nursing Documentation Reviewed: Yes - Infectious Disease Hx of Infectious Diseases: None - Tetanus Immunization Tetanus Immunization: Unknown - Cardiac Hx Cardiac Disorders: No - Pulmonary Hx Asthma: Yes - Neurological Hx Neurological Disorder: No - HEENT Hx HEENT Disorder: No - Renal Hx Renal Disorder: No - Endocrine/Metabolic Hx Endocrine Disorders: No - Hematological/Oncological Hx Blood Disorders: No - Integumentary Hx Dermatological Disorder: No - Musculoskeletal/Rheumatological Hx Musculoskeletal Disorders: No - Gastrointestinal Hx Gastrointestinal Disorders: No - Genitourinary/Gynecological Hx Genitourinary Disorders: No - Psychiatric Hx Psychophysiologic Disorder: No Hx Substance Use: Yes (2 days ago) - Past Surgical History Past Surgical History: No Previous - Anesthesia Hx Anesthesia: No - Suicidal Assessment Feels Threatened In Home Enviroment: No Family/Social History - Physician Review Nursing Documentation Reviewed: Yes Family/Social History: Unknown Family HX Smoking Status: Light Smoker < 10 Cigarettes Daily Hx Alcohol Use: No Hx Substance Use: Yes (2 days ago) Substance used: pcp, marijuana, nathen, ecstasy Hx Substance Use Treatment: No Allergies/Home Meds Allergies/Adverse Reactions: Allergies Beef Containing Products Allergy (Verified 08/05/17 15:25) SHORTNESS OF BREATH beet Adverse Reaction (Verified 08/05/17 15:25) RASH chocolate flavor Adverse Reaction (Verified 12/18/17 15:25) RASH ORANGE Adverse Reaction (Verified 08/05/17 15:25) SHORTNESS OF BREATH PORK Adverse Reaction (Verified 08/05/17 15:25) SWELLING scallops Adverse Reaction (Verified 08/05/17 15:25) SHORTNESS OF BREATH tomato Adverse Reaction (Verified 08/05/17 15:25) RASH Home Medications: Home Meds Medication Instructions Recorded Confirmed Albuterol HFA [Ventolin HFA 90 2 puff INH PRN PRN 08/05/17 08/05/17 mcg/actuation (8 g)] Review of Systems - Physician Review All systems were reviewed & negative as marked: Yes - Review of Systems Constitutional: absent: Fevers, Night Sweats Respiratory: absent: SOB Cardiovascular: absent: Chest Pain, Syncope Gastrointestinal: absent: Constipation, Diarrhea, Nausea, Vomiting Genitourinary Female: absent: Dysuria, Frequency, Hematuria, Urine Output Changes Musculoskeletal: Back Pain (left lumbar), Other (right knee pain) Neurological: absent: Headache, Dizziness, Focal Weakness, Gait Changes Physical Exam Vital Signs Reviewed: Yes Vital Signs Temp Pulse Resp BP Pulse Ox 08/05/17 16:43 69 18 125/70 100 08/05/17 15:26 98.3 F 75 18 128/75 100 Temperature: Afebrile Blood Pressure: Normal Pulse: Regular Respiratory Rate: Normal Appearance: Positive for: Well-Appearing, Non-Toxic, Comfortable Pain Distress: None Mental Status: Positive for: Alert and Oriented X 3 - Systems Exam Head: Present: Atraumatic, Normocephalic Pupils: Present: PERRL Extroacular Muscles: Present: EOMI Conjunctiva: Present: Normal Mouth: Present: Moist Mucous Membranes Neck: Present: Normal Range of Motion. No: MIDLINE TENDERNESS, Paraspinal Tenderness Respiratory/Chest: Present: Clear to Auscultation, Good Air Exchange. No: Respiratory Distress, Accessory Muscle Use Cardiovascular: Present: Regular Rate and Rhythm, Normal S1, S2. No: Murmurs Abdomen: Present: Normal Bowel Sounds. No: Tenderness, Distention, Peritoneal Signs Back: Present: Paraspinal Tenderness (left sided), Other (2 -4 cm abrasions to L side of lower back). No: Midline Tenderness (No cervical, thoracic or lumbar tenderness), Pain with Leg Raise Upper Extremity: Present: Normal Inspection, Normal ROM, NORMAL PULSES, Neurovascularly Intact. No: Cyanosis, Edema Lower Extremity: Present: NORMAL PULSES, Normal ROM, Tenderness (tenderness along IT band), Neurovascularly Intact. No: Edema, CALF TENDERNESS, Swelling, Erythema, Deformity, Temperature Abnormalties Neurological: Present: GCS=15, CN II-XII Intact, Speech Normal, Gait Normal ( Ambulating without difficulty) Skin: Present: Warm, Dry, Normal Color. No: Rashes Psychiatric: Present: Alert, Oriented x 3, Normal Insight, Normal Concentration Medical Decision Making ED Course and Treatment: 08/05/17 15:56 Impression: 32 year old female presents to the Emergency department complaining of back and leg pain status post a fall. Differential Diagnosis included but are not limited to: Sciatica vs IT band, presentation consistent with contusion but will get xray to rule out fracture. Plan: -- LS Spine -- Urine test -- Valium -- Toradol -- Reassess and disposition Progress Notes: 08/05/17 17:03 Ambulating around the ED without issue. No tenderness or swelling to hip, knee , femur. No neurologic deficits. Xray negative. Will follow-up with PMD 08/05/17 17:25 Report Date : 08/05/2017 17:22:19 PROCEDURE: Radiographs of the Lumbar Spine. Dictator : Tushar Frost MD IMPRESSION: No fracture or spondylolisthesis appreciated. Straightening of lumbar curvature. - RAD Interpretation Radiology Orders: 08/05/17 15:37 LS SPINE WITH OBL > 18 YRS OLD [RAD] Stat - Medication Orders Current Medication Orders: Discontinued Medications Diazepam (Valium) 5 mg PO STAT STA PRN Reason: Protocol Stop: 08/05/17 15:38 Last Admin: 08/05/17 16:01 Dose: 5 mg Ketorolac Tromethamine (Toradol) 60 mg IM STAT STA Stop: 08/05/17 15:38 Last Admin: 08/05/17 16:01 Dose: 60 mg MAR Pain Assessment Document 08/05/17 16:01 HI (Rec: 08/05/17 16:01 HI [facility] [id number]) Pain Reassessment Is this a pain reassessment? No Sleep Is patient sleeping during reassessment? No Presence of Pain Presence of Pain Yes Location Left, Right or Bilateral Right Pain Location Body Site Hip IM Administration Charges Document 08/05/17 16:01 HI (Rec: 08/05/17 16:01 [id number]) Injection Site MAR Injection Site Right Gluteus Brandon Charges for Administration # of IM Administrations 1 - Scribe Statement The provider has reviewed the documentation as recorded by the Scribe Clayton Blue All medical record entries made by the Scribe were at my direction and personally dictated by me. I have reviewed the chart and agree that the record accurately reflects my personal performance of the history, physical exam, medical decision making, and the department course for this patient. I have also personally directed, reviewed, and agree with the discharge instructions and disposition. Disposition/Present on Arrival - Present on Arrival Any Indicators Present on Arrival: No History of DVT/PE: No History of Uncontrolled Diabetes: No Urinary Catheter: No History of Decub. Ulcer: No History Surgical Site Infection Following: None - Disposition Have Diagnosis and Disposition been Completed?: Yes Diagnosis: Contusion Disposition: HOME/ ROUTINE Disposition Time: 16:54 Patient Plan: Discharge Condition: GOOD Additional Instructions: Follow-up with PMD within 2 days. Return to ED if condition worsens. Motrin for pain. Referrals: Ramonita Gardiner MD [Primary Care Provider] - Follow up with primary Forms: [employer] (Zimbabwean)
[2017-08-05 16:44] VITALS: BP 125/70; PULSE 69
--- NOTE | 2017-08-05 17:23 | RAD ---
PROCEDURE: Radiographs of the Lumbar Spine. HISTORY: fall with lumbar back pain COMPARISON: No prior. FINDINGS: BONES: Straightened lumbar curvature noted. No listhesis. No fracture. No spondylolysis. DISC SPACES: Unremarkable. OTHER FINDINGS: None. IMPRESSION: No fracture or spondylolisthesis appreciated. Straightening of lumbar curvature.
== END 2017-08-05 16:58 | disposition home or self-care (01) ==
LOC: ED 15:21
DX: S30.0XXA Contusion of lower back and pelvis, initial encounter (principal); W10.8XXA Fall (on) (from) other stairs and steps, initial encounter; Y92.89 Other specified places as the place of occurrence of the external cause
CPT/HCPCS: 72110; 96372; 99285; J1885

== ENCOUNTER 2018-05-05 12:49 | Emergency (ER) | payer MEDICAID, MEDICARE, OTHER ==
[2018-05-05 12:52] VITALS: BMI 24.2
--- NOTE | 2018-05-05 13:24 | ED PDOC ---
Arrival/HPI - General Historian: Patient - History of Present Illness Time/Duration: 24 hours Symptom Onset: Sudden Symptom Course: Unchanged Severity Level: Mild <Maykel Cisneros - Last Filed: 05/05/18 15:13> <Myesha Aragon - Last Filed: 05/05/18 15:41> - General Chief Complaint: Cough, Cold, Congestion Time Seen by Provider: 05/05/18 12:53 - History of Present Illness Narrative History of Present Illness (Text): Patient is a 32 year old female with PMH of asthma presenting to the ED with shortness of breath. Patient states that she started feeling short of breath yesterday when she was at home. She also states that she took her rescue inhaler this morning with little relief. She is also complaining of a productive cough with green sputum. Patient still smokes cigarettes and marijuana. She denies headaches, fevers, chills, chest pain, abdominal pain, or urinary symptoms. PMD: Dr. Gardiner (Maykel Cisneros) Past Medical History - Provider Review Nursing Documentation Reviewed: Yes - Travel History Have you recently traveled outside [place] w/in the past 3 mons?: No - Infectious Disease Hx of Infectious Diseases: None - Tetanus Immunization Tetanus Immunization: Unknown - Cardiac Hx Cardiac Disorders: No Hx Hypertension: No - Pulmonary Hx Asthma: Yes Hx Tuberculosis: No - Neurological HX Cerebrovascular Accident: No Hx Seizures: No - HEENT Hx HEENT Disorder: No - Renal Hx Renal Disorder: No - Endocrine/Metabolic Hx Endocrine Disorders: No - Hematological/Oncological Hx Cancer: No - Integumentary Hx Dermatological Disorder: No - Musculoskeletal/Rheumatological Hx Musculoskeletal Disorders: No - Gastrointestinal Hx Gastrointestinal Disorders: No - Genitourinary/Gynecological Hx Sexually Transmitted Diseases: No - Psychiatric Hx Anxiety: No Hx Bipolar Disorder: No Hx Depression: No Hx Schizophrenia: No Hx Substance Use: Yes - Past Surgical History Past Surgical History: No Previous - Anesthesia Hx Anesthesia: No - Suicidal Assessment Feels Threatened In Home Enviroment: No <Maykel Cisneros - Last Filed: 05/05/18 15:13> Family/Social History - Physician Review Nursing Documentation Reviewed: Yes Family/Social History: No Known Family HX Smoking Status: Light Smoker < 10 Cigarettes Daily Hx Alcohol Use: No Hx Substance Use: Yes Substance used: marijuana Hx Substance Use Treatment: No <Maykel Cisneros - Last Filed: 05/05/18 15:13> Allergies/Home Meds <Maykel Cisneros - Last Filed: 05/05/18 15:13> <RheaascencionMyesha A - Last Filed: 05/05/18 15:41> Allergies/Adverse Reactions: Allergies Beef Containing Products Allergy (Verified 04/16/18 22:07) SHORTNESS OF BREATH beet Adverse Reaction (Verified 04/16/18 22:07) RASH chocolate flavor Adverse Reaction (Verified 04/16/18 22:07) RASH ORANGE Adverse Reaction (Verified 04/16/18 22:07) SHORTNESS OF BREATH PORK Adverse Reaction (Verified 04/16/18 22:07) SWELLING scallops Adverse Reaction (Verified 04/16/18 22:07) SHORTNESS OF BREATH tomato Adverse Reaction (Verified 04/16/18 22:07) RASH Home Medications: Home Meds Medication Instructions Recorded Confirmed Albuterol HFA [Ventolin HFA 90 2 puff INH PRN PRN 08/05/17 05/05/18 mcg/actuation (8 g)] Ferrous Sulfate [Feosol] 325 mg PO DAILY 04/16/18 05/05/18 Folic Acid 1 mg PO DAILY 04/16/18 05/05/18 Ibuprofen [Motrin] 600 mg PO Q6 04/16/18 05/05/18 Loratadine 10 mg PO DAILY 04/16/18 05/05/18 Montelukast [Singulair] 10 mg PO DAILY 04/16/18 05/05/18 Fluticasone Nasal [Flonase] 1 spray .ROUTE PRN PRN 05/05/18 05/05/18 Review of Systems - Physician Review All systems were reviewed & negative as marked: Yes - Review of Systems Constitutional: Normal. absent: Fevers, Night Sweats Eyes: Normal ENT: Normal Respiratory: SOB, Cough, Sputum (green sputum), Wheezing Cardiovascular: Normal. absent: Chest Pain Gastrointestinal: Normal. absent: Abdominal Pain, Stool Changes, Constipation, Diarrhea, Nausea, Vomiting Genitourinary Female: Normal. absent: Dysuria, Frequency, Hematuria Musculoskeletal: Normal Skin: Normal. absent: Rash, Pruritis Neurological: Normal Endocrine: Normal Hemo/Lymphatic: Normal Psychiatric: Normal <Maykel Cisneros - Last Filed: 05/05/18 15:13> Physical Exam Vital Signs Reviewed: Yes Temperature: Afebrile Blood Pressure: Normal Pulse: Tachycardic Respiratory Rate: Normal Appearance: Positive for: Well-Appearing, Non-Toxic, Comfortable Pain Distress: None Mental Status: Positive for: Alert and Oriented X 3 - Systems Exam Head: Present: Atraumatic, Normocephalic Pupils: Present: PERRL Extroacular Muscles: Present: EOMI Conjunctiva: Present: Normal Mouth: Present: Moist Mucous Membranes Respiratory/Chest: Present: Good Air Exchange, Wheezes (Expiratory wheezes heard bilaterally). No: Clear to Auscultation, Respiratory Distress, Accessory Muscle Use, Decreased Breath Sounds, Rales, Rhonchi Cardiovascular: Present: Regular Rate and Rhythm, Normal S1, S2. No: Murmurs Abdomen: Present: Normal Bowel Sounds. No: Tenderness, Distention, Peritoneal Signs Upper Extremity: Present: Normal Inspection. No: Cyanosis, Edema Lower Extremity: Present: Normal Inspection. No: Edema Neurological: Present: GCS=15, CN II-XII Intact, Speech Normal Skin: Present: Warm, Dry, Normal Color. No: Rashes Psychiatric: Present: Alert, Oriented x 3, Normal Insight, Normal Concentration <Maykel Cisneros - Last Filed: 05/05/18 15:13> Vital Signs Temp Pulse Resp BP Pulse Ox 05/05/18 15:29 98.7 F 77 18 114/70 99 05/05/18 12:55 98.8 F 109 H 22 100/67 100 Medical Decision Making Reassessment Condition: Re-examined, Improved <Maykel Cisneros - Last Filed: 05/05/18 15:13> <Myesha Aragon - Last Filed: 05/05/18 15:41> ED Course and Treatment: Impression: Patient is a 32 year old female presenting to the ED with shortness of breath Differential Diagnosis included but are not limited to: - Asthma exacerbation Plan: -- Duonebs -- CXR -- Prednisone -- POC test Progress Notes: 05/05/18 13:49 - Patient reassessed, felling much better with duonebs. 05/05/18 15:10 - CXR: No acute disease - Patient is stable for discharge (Maykel Cisneros) 05/05/18 14:51 Patient seen by resident and then evaluated by me. She reports that she ran out of her albuterol. Presenting with wheezing that resolved after duonebs. Cxray negative 05/05/18 15:05 (Myesha Aragon) - RAD Interpretation Radiology Orders: 05/05/18 13:14 CHEST PORTABLE [RAD] Stat - Medication Orders Current Medication Orders: Discontinued Medications Albuterol/Ipratropium (Duoneb 3 Mg/0.5 Mg (3 Ml) Ud) 3 ml IH Q15M KELSY Stop: 05/05/18 13:31 Last Admin: 05/05/18 14:09 Dose: 3 ml Prednisone (Prednisone Tab) 60 mg PO STAT ONE Stop: 05/05/18 12:57 Last Admin: 05/05/18 13:34 Dose: 60 mg Disposition/Present on Arrival - Present on Arrival Any Indicators Present on Arrival: No History of DVT/PE: No History of Uncontrolled Diabetes: No Urinary Catheter: No History of Decub. Ulcer: No History Surgical Site Infection Following: None - Disposition Have Diagnosis and Disposition been Completed?: Yes Patient Plan: Discharge <Maykel Cisneros - Last Filed: 05/05/18 15:13> - Present on Arrival Any Indicators Present on Arrival: No - Disposition Have Diagnosis and Disposition been Completed?: Yes Disposition Time: 15:07 Patient Plan: Discharge <Myesha Aragon - Last Filed: 05/05/18 15:41> - Disposition Diagnosis: Asthma exacerbation Disposition: HOME/ ROUTINE Patient Problems: Current Active Problems Problem Status Onset Asthma exacerbation Acute Condition: GOOD Discharge Instructions (ExitCare): Asthma in Adults, Inhalers Additional Instructions: Follow-up with PMD within 2 days. Take albuterol as needed. Take full course of steroids. Return to ED immediately if condition worsens. Prescriptions: Albuterol HFA [Ventolin HFA 90 mcg/actuation (8 g)] 2 puff IH [id number] #1 puff Prednisone 50 mg PO DAILY #3 tablet Referrals: Ramonita Gardiner MD [Primary Care Provider] - Follow up with primary Forms: [place] ([place])
[2018-05-05] MEDS: Albuterol-Ipratrop 3 mg / 0.5 (3 ml) UD IH SCH ×3 (13:34→14:09)
--- NOTE | 2018-05-05 15:23 | RAD ---
Date of service: 05/05/2018 HISTORY: Cough COMPARISON: 06/23/2017. FINDINGS: LUNGS: The lungs are well inflated and clear. PLEURA: No significant pleural effusion identified, no pneumothorax apparent. CARDIOVASCULAR: Normal. OSSEOUS STRUCTURES: No significant abnormalities. VISUALIZED UPPER ABDOMEN: Normal. OTHER FINDINGS: None. IMPRESSION: No active pulmonary disease.
[2018-05-05 15:30] VITALS: BP 114/70; PULSE 77; RESP 18; TEMP 98.7; O2SAT 99
== END 2018-05-05 15:30 | disposition home or self-care (01) ==
LOC: ED 12:49
DX: J45.901 Unspecified asthma with (acute) exacerbation (principal); F17.210 Nicotine dependence, cigarettes, uncomplicated; F12.90 Cannabis use, unspecified, uncomplicated

== ENCOUNTER 2018-06-02 04:44 | Emergency (ER) | payer MEDICARE, MEDICAID ==
[2018-06-02 04:51] VITALS: BMI 25.0
[2018-06-02 04:53] VITALS: RESP 18
--- NOTE | 2018-06-02 05:12 | ED PDOC ---
Arrival/HPI - General Historian: Patient - History of Present Illness Narrative History of Present Illness (Text): 06/02/18 05:02 Patient is a 32 year old female with past medical history of polysubstance abuse (PCP, cocaine and marijuana) and asthma presenting to the emergency for acute onset of upper abdominal pain. The pain started approximately 30 minutes prior to arrival after eating fried chicken with hot sauce. The pain is described as sharp and cramping in nature. It is located in her LUQ and radiates to her left flank and across the upper portion of her abdomen. She reports passing an excessive amount of flatus since the pain has started. Patient reports that she recently had surgery on 05/21/18 to remove fibroids. Patient does not know exactly what surgery was done and if she still has a uterus or not. Patient was feeling well prior to eating chicken. Denies fevers, chills,nausea, vomiting, diarrhea, constipation, chest pain, shortness of breath, vaginal discharge or bleeding. Time/Duration: Prior to Arrival, 1/2 hour <Kishor Thomas - Last Filed: 06/02/18 06:38> <Tera Shelby - Last Filed: 06/02/18 06:57> - General Chief Complaint: Abdominal Pain Time Seen by Provider: 06/02/18 04:45 Past Medical History - Provider Review Nursing Documentation Reviewed: Yes - Infectious Disease Hx of Infectious Diseases: None - Tetanus Immunization Tetanus Immunization: Unknown - Cardiac Hx Cardiac Disorders: No Hx Hypertension: No - Pulmonary Hx Asthma: Yes Hx Tuberculosis: No - Neurological HX Cerebrovascular Accident: No Hx Seizures: No - HEENT Hx HEENT Disorder: No - Renal Hx Renal Disorder: No - Endocrine/Metabolic Hx Endocrine Disorders: No - Hematological/Oncological Hx Cancer: No - Integumentary Hx Dermatological Disorder: No - Musculoskeletal/Rheumatological Hx Musculoskeletal Disorders: No - Gastrointestinal Hx Gastrointestinal Disorders: No - Genitourinary/Gynecological Hx Sexually Transmitted Diseases: No - Psychiatric Hx Anxiety: No Hx Bipolar Disorder: No Hx Depression: No Hx Schizophrenia: No Hx Substance Use: Yes - Past Surgical History Past Surgical History: No Previous - Surgical History Other/Comment: Fibroid surgery 2018 - Anesthesia Hx Anesthesia: No - Suicidal Assessment Feels Threatened In Home Enviroment: No <Kishor Thomas - Last Filed: 06/02/18 06:38> Family/Social History - Physician Review Nursing Documentation Reviewed: Yes Family/Social History: Unknown Family HX Smoking Status: Light Smoker < 10 Cigarettes Daily Hx Alcohol Use: No Hx Substance Use: Yes Substance used: marijuana Hx Substance Use Treatment: No <Kishor Thomas - Last Filed: 06/02/18 06:38> Allergies/Home Meds <Kishor Thomas - Last Filed: 06/02/18 06:38> <Tera Shelby - Last Filed: 06/02/18 06:57> Allergies/Adverse Reactions: Allergies Beef Containing Products Allergy (Verified 06/02/18 04:53) SHORTNESS OF BREATH beet Adverse Reaction (Verified 06/02/18 04:53) RASH chocolate flavor Adverse Reaction (Verified 06/02/18 04:53) RASH ORANGE Adverse Reaction (Verified 06/02/18 04:53) SHORTNESS OF BREATH PORK Adverse Reaction (Verified 06/02/18 04:53) SWELLING scallops Adverse Reaction (Verified 06/02/18 04:53) SHORTNESS OF BREATH tomato Adverse Reaction (Verified 06/02/18 04:53) RASH Home Medications: Home Meds Medication Instructions Recorded Confirmed RX: Albuterol HFA [Ventolin HFA 90 2 puff INH PRN PRN 08/05/17 05/05/18 mcg/actuation (8 g)] Ferrous Sulfate [Feosol] 325 mg PO DAILY 04/16/18 05/05/18 Ibuprofen [Motrin] 600 mg PO Q6 04/16/18 05/05/18 Montelukast [Singulair] 10 mg PO DAILY 04/16/18 05/05/18 RX: Folic Acid 1 mg PO DAILY 04/16/18 05/05/18 RX: Loratadine 10 mg PO DAILY 04/16/18 05/05/18 Fluticasone Nasal [Flonase] 1 spray .ROUTE PRN PRN 05/05/18 05/05/18 Review of Systems - Physician Review All systems were reviewed & negative as marked: Yes - Review of Systems Constitutional: Normal. absent: Fatigue, Fevers ENT: Normal. absent: Sore Throat, Rhinorrhea Respiratory: Normal. absent: SOB, Cough, Wheezing Cardiovascular: Normal. absent: Chest Pain, Palpitations Gastrointestinal: Abdominal Pain (LUQ> diffuse, radiating to L flank and across upper portion of abdomen.). absent: Constipation, Diarrhea, Nausea, Vomiting Genitourinary Female: Normal. absent: Dysuria, Frequency, Vaginal Bleeding, Vaginal Discharge Skin: Normal. absent: Rash Neurological: Normal. absent: Headache, Dizziness Endocrine: Normal. absent: Diaphoresis Hemo/Lymphatic: Normal Psychiatric: Normal <Kishor Thomas - Last Filed: 06/02/18 06:38> Physical Exam Vital Signs Reviewed: Yes Vital Signs Temp Pulse Resp BP Pulse Ox 06/02/18 04:53 98.3 F 77 18 117/65 97 Temperature: Afebrile Blood Pressure: Normal Pulse: Regular Respiratory Rate: Normal Appearance: Positive for: Well-Appearing, Non-Toxic, Uncomfortable Pain Distress: Mild Mental Status: Positive for: Alert and Oriented X 3 - Systems Exam Head: Present: Atraumatic, Normocephalic Pupils: Present: PERRL Extroacular Muscles: Present: EOMI Conjunctiva: Present: Other (muddy sclera) Mouth: Present: Moist Mucous Membranes Nose (External): Present: Atraumatic Nose (Internal): Present: No Active Bleeding, Moist Neck: Present: Normal Range of Motion Respiratory/Chest: Present: Clear to Auscultation, Good Air Exchange. No: Respiratory Distress, Accessory Muscle Use, Wheezes, Rales, Retracting, Rhonchi, Tachypneic, Tender to Palpation Cardiovascular: Present: Regular Rate and Rhythm, Normal S1, S2. No: Murmurs, Tachycardic Abdomen: Present: Tenderness (diffuse, greatest in LLQ), Rebound, Guarding (diffuse). No: Distention, Peritoneal Signs, McBurney's Point Tender, Rovsing's Sign Present Upper Extremity: Present: Normal Inspection, NORMAL PULSES. No: Cyanosis, Edema Lower Extremity: Present: Normal Inspection, NORMAL PULSES. No: Edema, CALF TENDERNESS Neurological: Present: GCS=15, CN II-XII Intact, Speech Normal, Motor Func Grossly Intact Skin: Present: Warm, Dry, Normal Color. No: Rashes Psychiatric: Present: Alert, Oriented x 3, Normal Insight, Normal Concentration <Kishor Thomas - Last Filed: 06/02/18 06:38> Vital Signs Temp Pulse Resp BP Pulse Ox 06/02/18 04:53 98.3 F 77 18 117/65 97 <Tera Shelby - Last Filed: 06/02/18 06:57> Medical Decision Making ED Course and Treatment: 06/02/18 05:15 Patient is a 32 year old female with past medical history of polysubstance abuse (PCP, cocaine and marijuana) and asthma presenting to the emergency for acute onset of upper abdominal pain. Physical exam shows diffuse tenderness with rebound and guarding diffusely, greatest in LUQ. Abd/Pelvis CT w/o contrast because patient states she has many allergies, including seafood but does not know what foods. Labs and CT Protonix given 06/02/18 06:[address] and labs with patient and her boyfriend. Patient is to be discharged home with a prescription for protonix with instructions to follow up with her primary care physician. Re-evaluation Time: 06:38 - Lab Interpretations I have reviewed the lab results: Yes - RAD Interpretation Narrative RAD Interpretations (Text): 06/02/18 06:38 CT SCAN OF THE ABDOMEN AND PELVIS WITHOUT ORAL OR IV CONTRAST. CLINICAL INDICATION: Upper abdominal pain. TECHNIQUE: Axial and reformatted sagittal and coronal images of the abdomen pelvis obtained without IV contrast administration. COMPARISON: None. FINDINGS: The visualized lung bases are unremarkable. Normal unenhanced liver. Normal gallbladder and extrahepatic biliary system. Normal unenhanced spleen. Normal pancreas. Normal bilateral adrenal glands. Normal size of the right kidney. There is no right renal mass. There are no right renal calculi. There is no right hydronephrosis. Normal visualized right ureter. Normal size of the left kidney. There is no left renal mass. 3 mm left renal nonobstructing stone. There is no left hydronephrosis. Normal visualized left ureter. Normal visualized stomach. Normal small intestine. Normal colon. The appendix is visualized and appears normal. There is no demonstrated peritoneal fluid. Normal abdominal aorta. Normal inferior vena cava. Normal retroperitoneum. Normal urinary bladder. There is no pelvic mass lesion or lymphadenopathy. There is no pelvic fluid. Normal abdominal wall. Normal osseous structures. IMPRESSION: Nonobstructing left nephrolithiasis. Electronically signed on Jun 02, 2018 6:36:32 AM EDT by: Gregorio Faye M.D., Certified by [facility], [facility], Neuroradiology Radiology Orders: 06/02/18 05:01 ABD & PELVIS W/O PO OR IV CONT [CT] Stat Supervisor Rice Milling: Radiologist <Kishor Thomas - Last Filed: 06/02/18 06:38> ED Course and Treatment: Impression: Pt seen and evaluated with medical staffing coordinator. Aware and agree with HPI, clinical findings, plan, and management. Pt, whose past medical history includes polysubstance abuse and asthma, presented for sharp, cramping upper abdomial pain today. Plan: -- CT Abdomen and Pelvis w/o contrast -- Labs, lipase -- Urinalysis, urine drug screen -- Protonix -- Reassess and disposition - RAD Interpretation Radiology Orders: 06/02/18 05:01 ABD & PELVIS W/O PO OR IV CONT [CT] Stat - Medication Orders Current Medication Orders: Discontinued Medications Pantoprazole Sodium (Protonix Inj) 40 mg IVP STAT STA Stop: 06/02/18 05:19 <Tera Shelby - Last Filed: 06/02/18 06:57> - PA / COLLECTIONS SPECIALIST / Resident Statement / has reviewed & agrees with the documentation as recorded. / has examined the patient and agrees with the treatment plan. <Tera Shelby - Last Filed: 06/02/18 06:57> Disposition/Present on Arrival - Present on Arrival Any Indicators Present on Arrival: No History of DVT/PE: No History of Uncontrolled Diabetes: No Urinary Catheter: No History of Decub. Ulcer: No History Surgical Site Infection Following: None - Disposition Have Diagnosis and Disposition been Completed?: Yes Disposition Time: 06:40 Patient Plan: Discharge <Kishor Thomas - Last Filed: 06/02/18 06:38> <Tera Shelby - Last Filed: 06/02/18 06:57> - Disposition Diagnosis: Abdominal pain Disposition: HOME/ ROUTINE Patient Problems: Current Active Problems Problem Status Onset Abdominal pain Acute Condition: GOOD Discharge Instructions (ExitCare): Stomach Ache and Stomach Upset Additional Instructions: XENA NEAL, thank you for letting us take care of you today. Your provider was Tera Shelby MD and you were treated for ABDOMINAL PAIN. The emergency medical care you received today was directed at your acute symptoms. If you were prescribed any medication, please fill it and take as directed. It may take several days for your symptoms to resolve. Return to the Emergency Department if your symptoms worsen, do not improve, or if you have any other problems. Please contact your doctor or call one of the physicians/clinics you have been referred to that are listed on the Patient Visit Information form that is included in your discharge packet. Bring any paperwork you were given at discharge with you along with any medications you are taking to your follow up visit. Our treatment cannot replace ongoing medical care by a primary care provider outside of the emergency department. Thank you for allowing the [facility] team to be part of your care today. If you had an X-Ray or CT scan: A Radiologist will review the ED reading if any change in treatment is needed we will contact you. If you had a blood, urine, or wound culture: It will take several days for the results, if any change in treatment is needed we will contact you. If you had an STI test: It will take 48 hours for the results. Please call after 1 week if you have not heard back. Prescriptions: Pantoprazole [Protonix] 40 mg PO DAILY #30 ect Referrals: Ramonita Gardiner MD [Primary Care Provider] - Follow up with primary Forms: [employer] ([place])
[2018-06-02 05:31] LABS: PH,URINE 6.5 (4.7-8.0); URINE BILIRUBIN NEGATIVE (NEGATIVE); URINE BLOOD NEGATIVE (NEGATIVE); URINE GLUCOSE (UA) NEGATIVE (NEGATIVE); URINE LEUKOCYTE ESTERASE TRACE Leu/uL (NEGATIVE); URINE PROTEIN NEGATIVE mg/dL (<30 mg/dL); URINE UROBILINOGEN 0.2 E.U./dL (<1 E.U./dL)
[2018-06-02 05:34] LABS: URINE APPEARANCE CLEAR (CLEAR); URINE COLOR YELLOW (YELLOW)
[2018-06-02 05:37] LABS: BASO # 0.05 K/mm3 (0.0-2.0); BASO % 0.4 % (0.0-3.0); EOS # 0.8 (0.0-0.7); GRAN # 8.67 (1.4-6.5); GRAN % 67.8 % (50.0-68.0); HEMOGLOBIN 11.3 g/dL (12.0-16.0); LYMPH # 2.5 (1.2-3.4); LYMPH % 19.6 % (22.0-35.0); MEAN CELL VOLUME 69.7 fl (80.0-105.0); MEAN CORPUSCULAR HEMOGLOBIN 22.1 pg (25.0-35.0); MEAN CORPUSCULAR HGB CONC 31.7 g/dl (31.0-37.0); MEAN PLATELET VOLUME 8.9 fl (7.0-11.0); MONO # 0.8 (0.1-0.6); MONO % 6.2 % (1.0-6.0); RBC 5.12 10^6/uL (3.5-6.1); RED CELL DISTRIBUTION WIDTH 18.5 % (11.5-14.5); WHITE BLOOD COUNT 12.8 10^3/ul (4.5-11.0)
[2018-06-02 05:38] LABS: ALB/GLOB RATIO 1.3 (1.1-1.8); ALBUMIN 4.5 g/dL (3.0-4.8); ALT/SGPT 21 U/L (7-56); AST/SGOT 27 U/L (14-36); BLOOD UREA NITROGEN 14 mg/dL (7-21); CALCIUM 9.4 mg/dL (8.4-10.5); GFR NON-AFRICAN AMERICAN > 60; LIPASE 79 U/L (23-300)
[2018-06-02 05:50] LABS: URINE BACTERIA RARE (NEG); URINE RBC 0 - 2 /hpf (0-2)
[2018-06-02 06:07] LABS: BARBITURATES, UR NEGATIVE (NEGATIVE); BENZODIAZEPINES, UR NEGATIVE (NEGATIVE); OPIATES, UR NEGATIVE (NEGATIVE); PHENCYCLIDINE, UR POSITIVE (NEGATIVE)
[2018-06-02 07:37] VITALS: BP 116/64; PULSE 84; TEMP 98; O2SAT 100
--- NOTE | 2018-06-02 10:48 | CT ---
Date of service: 06/02/2018 PROCEDURE: CT Abdomen and Pelvis without intravenous contrast HISTORY: upper abd pain - diffusely tender COMPARISON: None. TECHNIQUE: Without contrast.. Contrast dose: Radiation dose: Total exam DLP = 295 mGy-cm. This CT exam was performed using one or more of the following dose reduction techniques: Automated exposure control, adjustment of the mA and/or kV according to patient size, and/or use of iterative reconstruction technique. FINDINGS: LOWER THORAX: Unremarkable. LIVER: Unremarkable. No gross lesion or ductal dilatation. GALLBLADDER AND BILE DUCTS: Unremarkable. PANCREAS: Unremarkable. No gross lesion or ductal dilatation. SPLEEN: Unremarkable. ADRENALS: Unremarkable. No mass. KIDNEYS AND URETERS: 2 mm nonobstructing stone in the upper pole of the left kidney. VASCULATURE: Unremarkable. No aortic aneurysm. BOWEL: Unremarkable. No obstruction. No gross mural thickening. APPENDIX: Unremarkable. Normal appendix. PERITONEUM: Unremarkable. No free fluid. No free air. LYMPH NODES: Unremarkable. No enlarged lymph nodes. BLADDER: Unremarkable. REPRODUCTIVE: Unremarkable. BONES: No acute fracture. OTHER FINDINGS: The report concurs with the preliminary [facility] report IMPRESSION: No acute findings
== END 2018-06-02 07:00 | disposition home or self-care (01) ==
LOC: ED 04:44
DX: R10.9 Unspecified abdominal pain (principal); J45.909 Unspecified asthma, uncomplicated; F19.10 Other psychoactive substance abuse, uncomplicated; F17.210 Nicotine dependence, cigarettes, uncomplicated
CPT/HCPCS: 74176; 80053; 81001; 83690; 83735; 85025; 87086; 96374; 99283; C9113; G0480

== ENCOUNTER 2018-10-02 20:29 | Emergency (ER) | payer MEDICARE, MEDICAID ==
[2018-10-02 20:29] VITALS: BMI 25.0
--- NOTE | 2018-10-02 20:49 | ED PDOC ---
Arrival/HPI - General Chief Complaint: Psychiatric Evaluation Time Seen by Provider: 10/02/18 20:30 Historian: Patient - History of Present Illness Narrative History of Present Illness (Text): 10/02/18 20:45 33 year old female whose past medical history includes polysubstance abuse, presents to the emergency department with visual and auditory hallucinations. Patient informs using marijuana and PCP today, but states earileir in day. Patient states she "hears evil" Patient denies any somatic complaints. Patient denies any suicidal or homicidal ideation. Patient also denies any fevers, chills, headache, dizziness, chest pain, shortness of breath, cough, abdominal pain, nausea, vomiting, diarrhea, back pain, neck pain, or any other complaint. in emergency room calm cooperative sleepgin in [facility]. PMD: Dr. Gardiner 10/02/18 22:43 Time/Duration: Prior to Arrival Symptom Onset: Gradual Symptom Course: Unchanged Activities at Onset: Light Context: Other (Drug use) Past Medical History - Provider Review Nursing Documentation Reviewed: Yes - Infectious Disease Hx of Infectious Diseases: None - Tetanus Immunization Tetanus Immunization: Unknown - Reproductive Currently : Unknown - Cardiac Hx Cardiac Disorders: No Hx Hypertension: No - Pulmonary Hx Asthma: Yes Hx Tuberculosis: No - Neurological HX Cerebrovascular Accident: No Hx Seizures: No - HEENT Hx HEENT Disorder: No - Renal Hx Renal Disorder: No - Endocrine/Metabolic Hx Endocrine Disorders: No - Hematological/Oncological Hx Cancer: No - Integumentary Hx Dermatological Disorder: No - Musculoskeletal/Rheumatological Hx Musculoskeletal Disorders: No - Gastrointestinal Hx Gastrointestinal Disorders: No - Genitourinary/Gynecological Hx Sexually Transmitted Diseases: No - Psychiatric Hx Anxiety: No Hx Bipolar Disorder: No Hx Depression: No Hx Hallucinations: Yes Hx Schizophrenia: Yes Hx Substance Use: Yes - Past Surgical History Past Surgical History: No Previous - Surgical History Other/Comment: Fibroid surgery 2018 - Anesthesia Hx Anesthesia: Yes Hx Anesthesia Reactions: No Hx Malignant Hyperthermia: No - Suicidal Assessment Feels Threatened In Home Enviroment: No Family/Social History - Physician Review Nursing Documentation Reviewed: Yes Family/Social History: No Known Family HX Smoking Status: Light Smoker < 10 Cigarettes Daily Hx Alcohol Use: No Hx Substance Use: Yes Substance used: marijuana Hx Substance Use Treatment: No Allergies/Home Meds Allergies/Adverse Reactions: Allergies Beef Containing Products Allergy (Verified 06/02/18 04:53) SHORTNESS OF BREATH beet Adverse Reaction (Verified 06/02/18 04:53) RASH chocolate flavor Adverse Reaction (Verified 06/02/18 04:53) RASH ORANGE Adverse Reaction (Verified 06/02/18 04:53) SHORTNESS OF BREATH PORK Adverse Reaction (Verified 06/02/18 04:53) SWELLING scallops Adverse Reaction (Verified 06/02/18 04:53) SHORTNESS OF BREATH tomato Adverse Reaction (Verified 06/02/18 04:53) RASH Home Medications: Home Meds Medication Instructions Recorded Confirmed RX: Albuterol HFA [Ventolin HFA 90 2 puff INH PRN PRN 08/05/17 05/05/18 mcg/actuation (8 g)] Ferrous Sulfate [Feosol] 325 mg PO DAILY 04/16/18 05/05/18 Ibuprofen [Motrin] 600 mg PO Q6 04/16/18 05/05/18 Montelukast [Singulair] 10 mg PO DAILY 04/16/18 05/05/18 RX: Folic Acid 1 mg PO DAILY 04/16/18 05/05/18 RX: Loratadine 10 mg PO DAILY 04/16/18 05/05/18 Fluticasone Nasal [Flonase] 1 spray .ROUTE PRN PRN 05/05/18 05/05/18 Review of Systems - Physician Review All systems were reviewed & negative as marked: Yes - Review of Systems Constitutional: absent: Fevers, Night Sweats Respiratory: absent: SOB, Cough Cardiovascular: absent: Chest Pain Gastrointestinal: absent: Abdominal Pain, Diarrhea, Nausea, Vomiting Musculoskeletal: absent: Back Pain, Neck Pain Neurological: absent: Headache, Dizziness Physical Exam - Systems Exam Head: Present: Atraumatic, Normocephalic Pupils: Present: PERRL Extroacular Muscles: Present: EOMI Conjunctiva: Present: Normal Mouth: Present: Moist Mucous Membranes Neck: Present: Normal Range of Motion Respiratory/Chest: Present: Clear to Auscultation, Good Air Exchange. No: Respiratory Distress, Accessory Muscle Use Cardiovascular: Present: Regular Rate and Rhythm, Normal S1, S2. No: Murmurs Abdomen: No: Tenderness, Distention, Peritoneal Signs Back: Present: Normal Inspection Upper Extremity: Present: Normal Inspection. No: Cyanosis, Edema Lower Extremity: Present: Normal Inspection. No: Edema Neurological: Present: GCS=15, CN II-XII Intact, Speech Normal Skin: Present: Warm, Dry, Normal Color. No: Rashes Psychiatric: Present: Alert, Oriented x 3, Normal Insight, Normal Concentration. No: Suicidal Ideation, Homicidal Ideation Medical Decision Making ED Course and Treatment: 10/02/18 20:51 Impression: 33 year old female presents with hallucinations. substance abuse vs pysch. Plan: -- EKG -- CMP, Labs -- CBC -- Chest X-ray -- Urinalysis -- Reassess and disposition Prior Visits: Notes and results from previous visits were reviewed Progress Notes: 10/02/18 21:29 Patient has been seen and evaluated by PES worker. Patient has been cleared for discharge by PES. 10/02/18 22:44 slept through entire emergency department stay- calm cooperative clinially sober. asking for dc. - Scribe Statement The provider has reviewed the documentation as recorded by the Scribe Ankit Jackson Provider Scribe Attestation: All medical record entries made by the Scribe were at my direction and personally dictated by me. I have reviewed the chart and agree that the record accurately reflects my personal performance of the history, physical exam, medical decision making, and the department course for this patient. I have also personally directed, reviewed, and agree with the discharge instructions and disposition. Disposition/Present on Arrival - Present on Arrival Any Indicators Present on Arrival: No History of DVT/PE: No History of Uncontrolled Diabetes: No Urinary Catheter: No History of Decub. Ulcer: No History Surgical Site Infection Following: None - Disposition Have Diagnosis and Disposition been Completed?: Yes Diagnosis: PCP (phencyclidine) abuse, Hallucinations, UTI (urinary tract infection) Disposition: HOME/ ROUTINE Disposition Time: 22:00 Condition: STABLE Discharge Instructions (ExitCare): Schizophrenia, Drug Abuse and Drug Addiction (DC), Drug Abuse Treatment Additional Instructions: return to any emergency room with worsening symptoms or concerns. Prescriptions: Nitrofurantoin Macrocrystals [Macrobid] 100 mg PO BID #14 cap Referrals: [facility] [Outside] - Follow up with primary [facility] [Outside] - Follow up with primary [facility] [place] [Outside] - Follow up with primary Forms: [employer] ([place])
[2018-10-02 20:51] VITALS: RESP 18; TEMP 98.3; O2SAT 98
[2018-10-02 21:20] LABS: BASO # 0.03 K/mm3 (0.0-2.0); BASO % 0.4 % (0.0-3.0); EOS # 0.3 (0.0-0.7); EOS % 4.3 % (1.5-5.0); LYMPH # 2.8 (1.2-3.4); LYMPH % 38.9 % (22.0-35.0); MEAN CELL VOLUME 71.8 fl (80.0-105.0); MEAN CORPUSCULAR HEMOGLOBIN 22.2 pg (25.0-35.0); MEAN PLATELET VOLUME 9.2 fl (7.0-11.0); MONO # 0.4 (0.1-0.6); MONO % 5.5 % (1.0-6.0); RBC 4.5 10^6/uL (3.5-6.1); RED CELL DISTRIBUTION WIDTH 17.8 % (11.5-14.5); WHITE BLOOD COUNT 7.2 10^3/uL (4.5-11.0)
[2018-10-02 21:21] LABS: URINE BILIRUBIN NEGATIVE (NEGATIVE); URINE BLOOD LARGE (NEGATIVE); URINE GLUCOSE (UA) NEGATIVE (NEGATIVE); URINE LEUKOCYTE ESTERASE MODERATE Leu/uL (NEGATIVE); URINE PROTEIN TRACE mg/dL (<30 mg/dL); URINE UROBILINOGEN 0.2 E.U./dL (<1 E.U./dL)
[2018-10-02 21:22] LABS: HCG,QUALITATIVE URINE NEGATIVE (NEGATIVE); URINE APPEARANCE SL CLOUDY (CLEAR); URINE COLOR YELLOW (YELLOW)
[2018-10-02 21:24] LABS: URINE BACTERIA MANY /hpf; URINE RBC 25 - 30 /hpf (0-2); URINE WBC 20 - 25 /hpf (0-6)
[2018-10-02 21:27] LABS: ACETAMINOPHEN < 10.0 ug/ml (10.0-20.0); SALICYLATE < 1 mg/dL (2.0-20.0)
[2018-10-02 21:29] LABS: ALB/GLOB RATIO 1.4 (1.1-1.8); ALBUMIN 3.9 g/dL (3.0-4.8); ALT/SGPT 16 U/L (7-56); AST/SGOT 19 U/L (14-36); BLOOD UREA NITROGEN 13 mg/dL (7-21); CALCIUM 8.5 mg/dL (8.4-10.5); GFR NON-AFRICAN AMERICAN > 60
[2018-10-02 21:53] LABS: BARBITURATES, UR NEGATIVE (NEGATIVE); BENZODIAZEPINES, UR NEGATIVE (NEGATIVE); OPIATES, UR NEGATIVE (NEGATIVE); PHENCYCLIDINE, UR POSITIVE (NEGATIVE)
[2018-10-02 22:01] VITALS: BP 111/76; PULSE 85
== END 2018-10-02 22:00 | disposition home or self-care (01) ==
LOC: ED 20:29
DX: N39.0 Urinary tract infection, site not specified (principal); F16.10 Hallucinogen abuse, uncomplicated; R44.3 Hallucinations, unspecified; F17.210 Nicotine dependence, cigarettes, uncomplicated; F20.9 Schizophrenia, unspecified
CPT/HCPCS: 80053; 81001; 83735; 84703; 85025; 87086; 90791; 99283; G0480